=== PATIENT | female | born 1935 | race Caucasian/White ===

== ENCOUNTER 2019-01-20 18:19 | Inpatient (IN) | payer OTHER, MEDICARE ==
[~2019-01-20] VITALS: Ht 162.6 cm; Wt 62.7 kg
[2019-01-20 19:31] LABS: PLATELET COUNT 302 x10^3mcL (130-400)
[2019-01-20 19:40] LABS: CALCIUM 10.3 mg/dL (8.5-10.1); CHLORIDE SERUM 102 mmol/L (98-107); CREATININE SERUM 1.7 mg/dL (0.6-1.0); GLUCOSE SERUM 168 mg/dL (74-106); POTASSIUM SERUM 4.5 mmol/L (3.5-5.1); SODIUM SERUM 140 mmol/L (136-145)
[2019-01-20 19:42] LABS: RED CELL DISTRIBUTION WIDTH 14.8 % (11.5-14.5)
[2019-01-20 19:45] LABS: ALKALINE PHOSPHATASE 144 U/L (46-116); ALT/SGPT 38 U/L (14-59); AST/SGOT 26 U/L (15-37); BILIRUBIN TOTAL 1.35 mg/dL (0.20-1.00); TOTAL PROTEIN, SERUM 7.9 g/dL (6.4-8.2)
[2019-01-20 19:47] LABS: ALBUMIN 3.1 g/dL (3.4-5.0)
[2019-01-20 20:08] LABS: BAND NEUTROPHIL 0 % (0-10); BASOPHIL 0 % (0-2); MONOCYTE 4 % (0-7); SEGMENTED NEUTROPHILS 90 % (37-75)
[2019-01-20 20:09] LABS: PLATELET MORPHOLOGY PLATELETS NORMAL; rbc morphology (normal/abnorm) NORMAL (NORMAL)
[2019-01-20 22:30] LABS: UA SPECIFIC GRAVITY >=1.030 (1.005-1.035); microscopic required? YES; urine erythrocyte 2+ (NEGATIVE)
[2019-01-20 23:24] VITALS: BP 136/74
[2019-01-21 00:09] LABS: MAGNESIUM 2.1 mg/dL (1.8-2.4); PHOSPHOROUS 4.6 mg/dL (2.5-4.9)
[2019-01-21 04:10] VITALS: BP 148/62
[2019-01-21 05:42] LABS: BASOPHIL % 0.1 % (0-2); PLATELET COUNT 270 x10^3mcL (130-400)
[2019-01-21 06:13] LABS: CALCIUM 9.4 mg/dL (8.5-10.1); CARBON DIOXIDE 26.1 mmol/L (21-32); CHLORIDE SERUM 107 mmol/L (98-107); CREATININE SERUM 1.8 mg/dL (0.6-1.0); GLUCOSE SERUM 141 mg/dL (74-106); POTASSIUM SERUM 4.6 mmol/L (3.5-5.1); SODIUM SERUM 143 mmol/L (136-145)
[2019-01-21 07:03] LABS: RED CELL DISTRIBUTION WIDTH 14.9 % (11.5-14.5)
[2019-01-21 08:44] VITALS: BP 141/73
[2019-01-21 11:41] VITALS: BP 130/70
[2019-01-21 16:06] VITALS: BP 127/69
[2019-01-21 19:53] VITALS: BP 163/64
[2019-01-22 06:00] VITALS: BP 192/97
[2019-01-22 07:04] LABS: CARBON DIOXIDE 25.1 mmol/L (21-32); CHLORIDE SERUM 102 mmol/L (98-107); CREATININE SERUM 1.5 mg/dL (0.6-1.0); GLUCOSE SERUM 156 mg/dL (74-106); MAGNESIUM 1.8 mg/dL (1.8-2.4); PHOSPHOROUS 2.4 mg/dL (2.5-4.9); POTASSIUM SERUM 3.4 mmol/L (3.5-5.1); SODIUM SERUM 140 mmol/L (136-145)
[2019-01-22 07:25] LABS: BASOPHIL % 0 % (0-2); PLATELET COUNT 238 x10^3mcL (130-400); RED CELL DISTRIBUTION WIDTH 14.8 % (11.5-14.5)
[2019-01-22 08:46] VITALS: BP 155/95
[2019-01-22 17:43] VITALS: BP 168/99
[2019-01-22 21:32] VITALS: BP 155/89
[2019-01-23 06:49] VITALS: BP 160/88
[2019-01-23 07:46] LABS: CALCIUM 9.5 mg/dL (8.5-10.1); CHLORIDE SERUM 100 mmol/L (98-107); CREATININE SERUM 1.1 mg/dL (0.6-1.0); GLUCOSE SERUM 132 mg/dL (74-106); POTASSIUM SERUM 3.7 mmol/L (3.5-5.1); SODIUM SERUM 136 mmol/L (136-145)
[2019-01-23 08:20] LABS: BASOPHIL % 0.3 % (0-2); PLATELET COUNT 220 x10^3mcL (130-400); RED CELL DISTRIBUTION WIDTH 14.5 % (11.5-14.5)
[2019-01-23 09:11] VITALS: BP 119/74
[2019-01-23 15:59] VITALS: BP 152/80
[2019-01-23 16:37] VITALS: Ht 162.6 cm; Wt 62.7 kg
[2019-01-23 16:52] VITALS: BP 160/86
[2019-01-23 21:09] VITALS: BP 143/90
[2019-01-24 05:30] VITALS: BP 142/66
[2019-01-24 07:11] LABS: CALCIUM 8.3 mg/dL (8.5-10.1); CARBON DIOXIDE 27.3 mmol/L (21-32); CHLORIDE SERUM 104 mmol/L (98-107); CREATININE SERUM 1.3 mg/dL (0.6-1.0); GLUCOSE SERUM 116 mg/dL (74-106); POTASSIUM SERUM 4.5 mmol/L (3.5-5.1); SODIUM SERUM 139 mmol/L (136-145)
[2019-01-24 07:50] LABS: PLATELET COUNT 217 x10^3mcL (130-400)
[2019-01-24 08:35] VITALS: BP 135/65
[2019-01-24 12:30] LABS: BASOPHIL % 0 % (0-2); RED CELL DISTRIBUTION WIDTH 14.6 % (11.5-14.5)
[2019-01-24 17:25] VITALS: BP 113/68
[2019-01-24 21:06] VITALS: BP 133/63
[2019-01-25 05:20] VITALS: BP 153/81
[2019-01-25 06:34] LABS: CHLORIDE SERUM 106 mmol/L (98-107); CREATININE SERUM 1.1 mg/dL (0.6-1.0); GLUCOSE SERUM 131 mg/dL (74-106); POTASSIUM SERUM 3.9 mmol/L (3.5-5.1); SODIUM SERUM 138 mmol/L (136-145)
[2019-01-25 06:40] LABS: BASOPHIL % 0.4 % (0-2); PLATELET COUNT 188 x10^3mcL (130-400)
[2019-01-25 06:41] LABS: RED CELL DISTRIBUTION WIDTH 14.9 % (11.5-14.5)
[2019-01-25 09:20] VITALS: BP 134/76
[2019-01-25] MEDS ORDERED: HEP5I SC (12:48)
[2019-01-25 13:59] VITALS: BP 134/76
[2019-01-25 16:35] VITALS: BP 155/101
== END 2019-01-25 19:07 | DRG 469 ==
LOC: ED 18:19 → MU 21:57
PROVIDERS: Emergency Medicine; Family Medicine; Neuromusculoskeletal Medicine, Sports Medicine; ADMIT Internal Medicine
PROC: 0SRS0JA Replacement of Left Hip Joint, Femoral Surface with Synthetic Substitute, Uncemented, Open Approach (ICD-10-PCS; principal; 2019-01-23 13:00)
DX: S72.012A Unspecified intracapsular fracture of left femur, initial encounter for closed fracture (principal); N17.0 Acute kidney failure with tubular necrosis; E44.1 Mild protein-calorie malnutrition; Z68.1 Body mass index [BMI] 19.9 or less, adult; D72.829 Elevated white blood cell count, unspecified; E86.0 Dehydration; R80.9 Proteinuria, unspecified; R73.03 Prediabetes; W18.39XA Other fall on same level, initial encounter; Y93.89 Activity, other specified; F03.90 Unspecified dementia, unspecified severity, without behavioral disturbance, psychotic disturbance, mood disturbance, and anxiety; Y92.018 Other place in single-family (private) house as the place of occurrence of the external cause
CPT/HCPCS: 82962; 83880; 97116-GP; 97530-GP; C1776; J0690; J1644; J2270; J2405; J3010; J7030; Q0092

== ENCOUNTER 2019-02-08 09:34 | Inpatient (IN) | payer OTHER, MEDICARE ==
[~2019-02-08] VITALS: Ht 160 cm; Wt 54.4 kg
[~2019-02-08 09:34] MED LIST: HEP5I SC
--- NOTE | 2019-02-08 09:50 | NUR ---
PATIENT SHADY NASH COMING FROM [facility] AFTER HAVING LEFT HIP PAIN. PER MEDICS, PATIENT WAS IN [facility] FOR REHABILITATION FOR LEFT HIP FRACTURE FROM 3 WEEKS AGO. PER MEDIC, PATIENT WAS NON COMPLIANT WITH REHAB TREATMENT. UPON ARRIVAL TO ED, PATIENT'S HIP WEDGE WAS NOT PLACED BETWEEN PATIENT'S HIP. UPON ASSESSING PATIENT, PATIENT IS A POOR HISTORIAN WITH A HX OF DEMENTIA. PATIENT UNABLE TO DETERMINE TIME AND PLACE, BUT ABLE TO STATE HER FULL NAME AND DATE OF . PATIENT UNABLE TO LIFT LEFT HIP, STS PAIN WHEN ATTEMPTING TO LIFT. PATIENT ABLE TO MOVE RIGHT HIP, AND ABLE TO MOVE LEFT TOES. CAP REFILL BRISK <3 SECONDS. JENARO NOTED ON LEFT HIP, NO SIGNS OF INFLAMMATION NOTED, NO SIGNS OF BLEEDING OR SKIN TEARS NOTED ON LEFT HIP SURGICAL SITE. DR. WALDROP PERFORMED MSE AT BEDSIDE.
--- NOTE | 2019-02-08 09:55 | NUR ---
PATIENT TAKEN TO XRAY
--- NOTE | 2019-02-08 10:16 | NUR ---
LAB AT BEDSIDE DRAWING BLOOD
--- NOTE | 2019-02-08 10:23 | NUR ---
PT STS "COME ON GET ME OUT OF THIS BED!" BREATHING IS E/U BILATERAL CHEST RISE. BED AT LOWEST LEVEL. CALL LIGHT IN REACH. PATIENT IN NAD
--- NOTE | 2019-02-08 10:29 | NUR ---
UNABLE TO ASSESS BACK FOR ANY PRESSURE ULCERS, PATIENT STS PAIN WHEN ROTATING ON THE BED.
[2019-02-08 10:35] LABS: CALCIUM 9.3 mg/dL (8.5-10.1); CARBON DIOXIDE 28.2 mmol/L (21-32); CHLORIDE SERUM 104 mmol/L (98-107); CREATININE SERUM 1.2 mg/dL (0.6-1.0); GLUCOSE SERUM 134 mg/dL (74-106); POTASSIUM SERUM 4.7 mmol/L (3.5-5.1); SODIUM SERUM 139 mmol/L (136-145)
[2019-02-08 10:39] LABS: ALKALINE PHOSPHATASE 151 U/L (46-116); ALT/SGPT 38 U/L (14-59); AST/SGOT 23 U/L (15-37); BILIRUBIN TOTAL 0.54 mg/dL (0.20-1.00)
[2019-02-08 10:44] LABS: BASOPHIL % 0.4 % (0-2); PLATELET COUNT 494 x10^3mcL (130-400); RED CELL DISTRIBUTION WIDTH 15.4 % (11.5-14.5)
[2019-02-08 10:46] LABS: ALBUMIN 2.4 g/dL (3.4-5.0); TOTAL PROTEIN, SERUM 6.1 g/dL (6.4-8.2)
[2019-02-08 10:57] LABS: CHOLESTEROL/HDL RATIO 4.7
--- NOTE | 2019-02-08 11:55 | NUR ---
PT RESTING AT BEDSIDE IN NAD
--- NOTE | 2019-02-08 12:30 | NUR ---
RECEIVED PATIENT FROM [employer] FROM ED VIA [facility]. PATIENT WAS ALREADY IN BED, TRANSFERRED BY TECH AND WASTE MACHINE OPERATOR. PATIENT WAS ALERT BUT CONFUSED WITH A HISTORY OF DEMENTIA, A/0X1 ON ROOM AIR. PATIENT NOT COMPLAINING OF PAIN AT THIS TIME. PATIENT ADMITTED DUE TO LEFT HIP DISLOCATION S/P FALL AT NURSING CARE FACILITY. LEFT HIS HAS DEFORMITY, LEFT LEG SHORTENING AND INTERNAL ROTATION. PULSES, MOTOR, AND SENSORY INTACT. 20G IV TO LAC INTACT, SITE WNL. DAUGHTER AT BEDSIDE AMI [phone].
--- NOTE | 2019-02-08 12:45 | NUR ---
CALLED LUCRECIA FROM PT, INFORMED HIM THAT PATIENT IS NOW IN ROOM 226B AND IS READY FOR BUCKS TRACTIONS TO BE PLACED.
--- NOTE | 2019-02-08 13:18 | NUR ---
NS @ 100/H INFUSION STARTED PER OCT. TURNED PATIENT AND PLACED OPTIFOAM ON COXIS. PATIENT PLACED IN POSITION OF COMFORT. PT TO COME AND PLACE IN BUCKS TRACTION
[2019-02-08 13:21] VITALS: BP 118/70
--- NOTE | 2019-02-08 14:43 | NUR ---
PATIENT COMPLAINING OF NAUSEA. FOUND PATIENT LAYING SUPINE WITH BUCKS TRACTION IN PLACE TO LEFT LEG, 7LBS. PATIENT ALSO COMPLAIING OF SLIGHT PAIN BUT CONFUSED TO HOW SHE FELT. ADMINISTERED NORCO AND ZOFRAN PER MAR. WILL REASSESS PAIN IN 1 HOUR. CALL LIGHT WITHIN REACH, REINFORCED TEACHING TO USE CALL LIGHT IS HELP IS NEEDS. BED IN LOWEST POSITION, CALL LIGHT WITHIN REACH, AND BED ALARM ON
--- NOTE | 2019-02-08 16:08 | NUR ---
ENTERED PATIENT ROOM TO REASSESS PAIN, FONUD PATIENT SUPINE IN BED WITH GOWN OFF, IV PULLED OUT, AND ID BRACLET PULLED OFF. PATIENT A/0 X1 TO SELF, CONFUSED ABOUT LOCATION AND PURPOSE. REORIENTED PATIENT TO LOCATOIN AND TREATMENT PURPOSE. REDRESSED PATIENT AND HELPED TO GET COMFORTABLE. REMOVED IV CATH INTACT. NO BLEEDING, SWELLING TO SITE. RESTARTED IV 22GAUGE IN LEFT FOREARM, FLUSHES WELL.
--- NOTE | 2019-02-08 16:21 | NUR ---
PER CHARGE NURSE. PATIENT MOVED TO ROOM 220 INCASE OF NEED FOR SITTER. PATIENT MOVED WITHOUT INCIDENT. REPLACED FALL RIGHT BAND ON LEFT ARM, WELL IDENTIFICATION BAND. NEW IV SITE INTACT, FUSHES WELL. COVERED WITH SLEEVE. CALL LIGHT WITHIN REACH
--- NOTE | 2019-02-08 17:00 | NUR ---
FOUND PATIENT CONFUSED NEEDING REORIENTATION. PATIENT HAD REMOVED HER IV FROM THE RIGHT FOREARM. CATH IN TACT. SITE BLEEDING. PRESSURE APPLIED UNTIL BLEEDING CONTROLLED. CHANGED PATIENT GOWN AND LINEN WHICH HAD BLOOD ON IT. REORIENTED PATIENT TO LOCATION AND PURPOSE. PATIENT NOT AGITATED OR AGGRESSIVE, NOT TRYING TO GET OUT OF BED. BUCKS TRACTION NOT DISTURBED. IV ACCESS GAINED TO RIGHT FOREARM 22G. FLUSHES WELL, NO INFILTRATION AT SITE. CALL LIGHT WITHIN REACH
--- NOTE | 2019-02-08 17:30 | NUR ---
CALLED RAZ ROJAS PAINTING SUPERVISOR, INFORMED HER OF PATIENT CONDITION AND RECOMMENDATION FROM PAM, CHARGE NURSE, TO PLACE PATIENT IN SOFT BILATERAL WRIST RESTRAINTS. VERBAL ORDER RECEIVED FOR BILATERAL SOFT WRIST RESTRAINTS, AND TORODOL 15MG IVP ONCE. READ BACK. CALLED PATIENT DAUGHTER, AMI OROZCO TO GET VERBAL CONSENT FOR RESTRAINTS. INFORMED DAUGHTER OF PATIENT CONDITION AND THE NEED FOR RESTAINTS, ALSO INFORMED DAUSTER OF ALTERNATIVES ATTEMPTED PRIOR TO RECEIVING ORDER FOR RESTAINTS. DAUGHTER CONSENTED TO TREATMENT, WITNESSED AND CONFIRMED BY KORIN HDZ. BILATERAL SOFT, WRIST RESTRAINTS APPLIED. PULSE, MOTOR, SENSORY, AND CAP REFILL CHECKED AND WNL. PROPER DOCUMENTATION STARTED PER PROTOCOL.
[2019-02-08 18:11] VITALS: BP 148/79
--- NOTE | 2019-02-08 18:37 | NUR ---
ADMINISTERED TORODOL IVP PER ORDER. PATIENT CONFUSED, UNABLE TO BE REORIENTED TO SITUATION. SOFT RESTRAINTS IN PLACE, BUCKS TRACTION IN PLACE. CALL LIGHT WITHIN REACH
--- NOTE | 2019-02-08 19:35 | NUR ---
RECEIVED REPORT FROM AM NURSE, PT AAOX1, WITH EPISODES OF CUNFUSION. MED-SURG, DENIES ANY CP/PRESSURE AT THIS TIME. PALPABLE PULSES TO BLE AND BUE, NO EDEMA NOTED. LUNG SOUNDS CTA ON RA , BREATHING EVEN AND UNLABORED, NO SIGNS OF RESP DISTRESS NOTED. ABD SOFT AND NONDISTENDED, ACTIVE BOWEL SOUNDS X4 QUAD. VOIDS FREELY, BEDFAST, SYED TRACTION TO LLE 7LB ORDERED. CLOSED INCISION TO LEFT HIP WITH JENARO INTACT STATIC BALANCER, ERYTHEMA NOTED TO SITE. SMALL WOUND NOTED TO COCCYX, OPTIFOAM IN PLACE CDI.SOFT RESTRAINS TO BUE, GOOD CIRCULATION AND SKIN INTACT. IV TO LAC PATENT AND INTACT, BED AT LOWEST POSTION, CALL LIGHT WITHING REACH, WILL CONTINUE TO MONITOR.
--- NOTE | 2019-02-08 20:35 | NUR ---
PT REPORTS HAVING DIFFICULT TIME AND PAIN USING BEDPAN. DR TOWNSEND CALLED AND MADE AWARE, ORDERS RECEIVED FOR GOODRICH CATH INSERTION. EXPLAINED NEED TO PT, PT AGREEABLE. WILL CARRY OUT ORDERS.
--- NOTE | 2019-02-08 21:05 | NUR ---
PT RECEIVED A URINRY GOODRICH CATHETER PER MD ORDER. URINARY 16 FR INSERTED WITH 10CC IN BALLOON. URINE OUPUT OF 200 ML, URINE IS YELLOW AND CLEAR. STAT LOCK TO THE RIGHT UPPER THIGH. PT TOLERATED PROCEDURE WELL. RISK AND BENEFIT EXPLAINED TO PT. WILL CONTINUE TO MONITOR.
[2019-02-08 21:40] VITALS: BP 145/81
--- NOTE | 2019-02-09 00:49 | NUR ---
PT AWAKE IN BED, RESTRAINS TO BUE ASSESSSED, GOOD CIRCULATION AND SKIN INTACT. ROM TO BUE GIVEN. BREATHING EVEN AND UNLABORED ON RA, NO SIGNS OF ACUTE DISTRESS NOTED. DENIES ANY PAIN AT THIS TIME. WILL CONTINUE TO MONITOR.
[2019-02-09 05:36] VITALS: BP 133/72
--- NOTE | 2019-02-09 06:04 | NUR ---
PT SLEPT AT INTERVALS THROUGHOUT NIGHT. NIGHT, BREATHING EVEN AND UNLABORED ON RA, NO SIGNS OF ACUTE DISTRESS NOTED. SOFT RESTRAINS TO TIARA UE, ROM DONE, GOOD CIRCULATION AND SKIN INTACT NOTED. TRACTION TO L LEG IN PLACE. FALL PREACUTIONS IN PLACE. ALL NEEDS ASSESSED AND ATTENDED. BED AT LOWEST POSITION CALL LIGHT WITHING REACH. WILL ENDORSE TO AM NURSE.
[2019-02-09 06:20] LABS: BASOPHIL % 0.5 % (0-2)
[2019-02-09 06:49] LABS: PLATELET COUNT 430 x10^3mcL (130-400)
[2019-02-09 07:00] LABS: CALCIUM 8.8 mg/dL (8.5-10.1); CHLORIDE SERUM 107 mmol/L (98-107); CREATININE SERUM 1.2 mg/dL (0.6-1.0); GLUCOSE SERUM 107 mg/dL (74-106); MAGNESIUM 1.9 mg/dL (1.8-2.4); PHOSPHOROUS 3.3 mg/dL (2.5-4.9); POTASSIUM SERUM 4.4 mmol/L (3.5-5.1); SODIUM SERUM 141 mmol/L (136-145)
--- NOTE | 2019-02-09 09:33 | NUR ---
ADMINISTERED COLACE PER MAR, PATIENT IN SOFT RESTAINTS. TOLERATING WELL. STILL CONFUSED BUT ABLE TO BE REORIENTED
[2019-02-09 10:11] VITALS: BP 149/73
--- NOTE | 2019-02-09 10:42 | NUR ---
PATIENT RESTING CONFORTABLY AT THIS TIME. CONFUSED BUT REDIRECTABLE. CALM AND COOPERATIVE. SCDS TO RIGHT LOWER EXTREMITRY CALL LIGHT WITHIN REACH
--- NOTE | 2019-02-09 11:02 | NUR ---
WOUND CARE NURSE CAME AND EVALUATED PATEINT WOUNDS. COCCYX PRESSURE ULCER UNSTAGABLE, ORDERS BEING PUT IN FOR WOUND CARE.
--- NOTE | 2019-02-09 11:41 | NUR ---
WOUND CARE EVALUATION NOTE: REASON FOR EVALUATION: LOW COREEN SCORE AND SACRALCOCCYX WOUND SKIN ASSESSMENT DONE WITH PRIMARY RN AND PHYSICAL THERAPY WITH THIS 83 Y/O FEMALE PT ADMITTED FROM [facility] [place] [facility]IT[place] DX LEFT HIP DISLOCATION S/P FALLS. PAST MEDICAL HX INCLUDES DEMENTIA, LEFT HIP REPLACEMENT ABOUT 3 WEEKS AGO. ALL ABOVE INFORMATION OBTAINED FROM ADMISSION H&P. PT. ADMITTED WITH PRESSURE ULCER UNSTAGEABLE TO SACRALCOCCYX AREA. PT IS AWAKE. SKIN IS WARM AND DRY, RLE FEW HAIR GROWTH, NO EDEMA. BUCKS TRACTION TO LLE. PLAN OF CARE DISCUSSED WITH PRIMARY RN. INTEGUMENTARY: -SKIN DRYNESS TO UPPER AND LOWER EXTREMITIES -PRESSURE ULCER UNSTAGEABLE TO SACRALCOCCYX, 2X1CM 100% YELLOW SLOUGHT TO WOUND BED, MUSTAPHA-WOUND SKIN INTACT AND REDNESS -LEFT HIP SURGICAL WOUND MULTIPLE JENARO IN PLACE NO S/S OF WOUND DEHISCENCE, MUSTAPHA-WOUND SKIN INTACT AND DRY -BLANCHABLE REDNESS TO R/L HEELS RECOMMENDATIONS: -KEEP SKIN DRY AND CLEAN AT ALL TIMES, PLEASE CHECK Q2H AND PRN FOR INCONTINENCY OF BOWEL. -APPLY HYDRAGUARD TO R/L HEELS AND UPPER AND LOWER EXTREMITIES -CLEANSE WITH WOUND CLEANSING SOLUTION AND APPLY THERAHONEY GEL TO SACROCOCCY, APPLY FOAM DRESSING, QDAYAND PRN IF SOILING PREVENTION -APPLY HEEL PROTECTOR TO RIGHT HEEL AT ALL TIMES -OFFLOAD BILATERAL HEELS BY PLACING PILLOWS UNDER CALVES UNLESS OTHERWISE CONTRAINDICATED -PRESSURE REDISTRIBUTION SURFACE THERAPY -TURN AND REPOSITION Q2H, OFFLOAD SACRALCOCCYX BY TURNING RIGHT AND LEFT -CONTINUE TO FOLLOW RD RECOMMENDATIONS ALL ABOVE RECOMMENDATIONS DISCUSSED WITH PRIMARY RN. PLEASE CONTACT WOUND CARE NURSE FOR ANY QUESTION AND CHANGE OF WOUND CONDITION.
--- NOTE | 2019-02-09 13:50 | NUR ---
Initial Nutrition Assessment: 220/A SHARON EMERSON IA HR Dx: L hip dislocation PMHx: Dementia PSHx: Left Hip Replacement Labs: BG 107H, BUN 29H, CREAT 1.2H, TG 231H, CHOL 211H, LDL 141H Meds: Colace, morphine, zofran Diet: CCHO PO Intake: Not documented Ht: 160.02cm (63") Wt: 54.4 kg (119#) BMI: 21.3 kg/m2 Bed scale: 119# IBW:115# (52 kg) %IBW: 103 UBW: 119# Age: 83/F Food Allergies: NKFA Skin: s/p previous L hip replacement w/filomena intact, erythema noted to site Norris: 13 Edema: none GI: Last BM: 02/08 Trigger: appears underweight/malnourished, admitted w/potential risk diagnosis Per H&P, Pt is a 83-year-old Female with history of dementia, who was brought in by EMS from [facility] for having left hip pain. Patient was admitted to [facility] 3 weeks ago for rehabilitation for left hip fracture and s/p replacement. Patient is a poor historian and has HX of Dementia. RDN Visit (02/09): Patient was resting but said that she feels uncomfortable due to something 'hard' placed beneath her back/hips. Patient said that she did eat her breakfast this morning and her appetite is good. She refused to take any oral nutrition supplements. Patient was asking "where am I", I informed her that she was in [facility] [place] Patient said that she does not drink tea/coffee d/t protestant reasons. Computrition was updated. Problem with: N/V/D/C: no Problems with: Chewing/Swallowing: no Current appetite: good Recent wt change: pt not sure %wt change: unable to access Vitamin/Supplement use: MVI, B-complex, pt not exactly sure Special diet at home: regular, no tea/coffee Physical activity: none Nutrition education given: Patient was encouraged to eat and improve PO to help in healing and improve overall nutritional status Food-drug interactions: Colace- high fiber w/3045-2077 ml fluids Education given: Estimated Nutritional Needs Based on current body weight 54.4 kg Energy: 4612-6012 kcal/d (25-30 kcal/kg) Protein: 54.4-65 g/d (1.0-1.2 g/kg) - geriatric maintenance Fluid: 4657-0120 ml/d (1 ml/kcal) or per doctor Nutrition Diagnosis 1. Altered nutrition related lab values related to endocrine and renal insufficiency and advanced age as evidenced by BG 107H, BUN 29H, CREAT 1.2H Intervention 1. Recommend continuing CCHO diet as tolerated. Monitor/Evaluate Goal: PO intake at least 75% of estimated needs Monitor: PO intake, Labs, GI function F/U in 3-5 days as moderate risk
--- NOTE | 2019-02-09 13:50 | NUR ---
1. Recommend continuing CCHO diet as tolerated.
--- NOTE | 2019-02-09 15:25 | NUR ---
PHYSICAL THERAPY NOTE PHYSICAL THERAPY EVAL ON HOLD. PATIENT IS PLANNED FOR SURGICCAL INTERVENTION OF DISPLACED L HIP.
--- NOTE | 2019-02-09 15:26 | NUR ---
[facility]. WITH TOTAL ASSIST ADN PT PRESENT, PATIENT WAS MOVED TO [facility]. PATEINT PLACED IN POSITION OF COMFORT. SCD AND PROTECTANT BOOT APPLIED TO RIGHT LEG. REPLACED MAINTANCE FLUID PER OCT. PATIENT IS STILL IN SOFT WRIST RESTRAINTS, PATIENT TRYS TO REMOVE IV LINES SOON RESTRAINTS ARE REMOVED.
--- NOTE | 2019-02-09 15:40 | NUR ---
SPOKE WITH RAZ REINOSO, INFORMED HER THAT PATIENT REMAINS ON RESTIANTS AND GOT APPROVAL TO CONTINUE ORDER FOR SOFT RESTAINTS. PATIENT TOLERATING RESTAINTS WELL..
[2019-02-09 17:44] VITALS: BP 155/87
--- NOTE | 2019-02-09 18:00 | NUR ---
RENEWED ORDER FOR SOFT RESTRAINTS, PER PROTOCOL. PATIENT SPENT TOTAL OF 10 HOURS IN RESTRAINTS, CONTINUALLY PULLING AT IV LINE SOON RESTRIANTS REMOVED
--- NOTE | 2019-02-09 18:41 | NUR ---
WITH ASSISTACE, PERFORMED WOUND CARE TO COCCYX PER ORDER, PERFORMED GOODRICH CARE. PATIENT COMPLIANT WITH TREATMENTS, RESTAINTS STILL INPLACE TO BILATERAL WRISTS.
[2019-02-09 19:40] VITALS: BP 140/62
--- NOTE | 2019-02-09 19:40 | NUR ---
RECEIVED REPORT FROM AM NURSE. PT AAOX1 ABLE TO FOLLOW SIMPLE COMMANDS. MED-SURGE, DENIES CP/PRESSURE AT THIS TIME. PALPABLE PULSES TO BLE, NO EDEMA NOTED, SCDS IN PLACE. BREATHING EVEN AND UNLABORED ON RA, LUNG SOUNDS CTA, NO RESP DISTRESS NOTED. ABD SOFT AND NONDISTENDED, ACTIVE BOWEL SOUNDS X4QUAD, DENIES N/V. FOLLEY CATHETER DRANING WELL BY GRAVITY, BRENDA COLOR URINE IN BAG. GENERALIZED WEAKNESS, BUCKS TRACTION 7LB TO LLE IN PLACE OFF THE FLOOR. SOFT WRIST RESTRAINS TO BUE, GOOD CIRCULATION AND INTACT SKIN TO BUE. OPEN WOUND TO COCCYX WITH OPTIFOAM CDI. JENARO TO LEFT HIP WITH OPTIFOAM CDI. IV TO RFA INFUSING WELL, FREE FROM REDNESS AND SWELLING. NO ACUTE DISTRESS NOTED. BED ALARM ON, CALL LIGHT WITHING REACH. WILL CONTINUE TO MONITOR.
--- NOTE | 2019-02-09 21:44 | NUR ---
PT FOUND WITH RESTRAINS OFF, AND PULLING AT GOODRICH CATH, IV TO RFA REMOVED WITH CATH INTACT. PT PLACED BACK ON TO BUE SOFT WRIST RESTRAINS. NEW IV STARTED TO RFA, IV FLUIDS RETARTED ORDERED.
--- NOTE | 2019-02-10 03:10 | NUR ---
PT FOUND WITH RESTRAINS OFF, PULLING AT GOODRICH CATH. PT REPOSITIONED, PUT BACK ON SOFT WRIST RESTRAINS TO BUE, GOOD CIRCULATION AND SKIN INTACT TO BUE. BREATHING EVEN AND UNLABORED, IV TO RFA INFUSING WELL. BUCKS TRACTION TO LLE OFF THE FLOOR. NO SIGNS OF ACUTE DISTRESS NOTED. WILL CONTINUE TO MONITOR.
--- NOTE | 2019-02-10 05:20 | NUR ---
SPOKE WITH PT'S DAUGHTER, AMI BUCKNER, OBTAINED TELEPHONE CONSENT FOR SCHEDULED SURGERY THIS MORNING. VERIFIED WITH SECOND RN, JOHNNY BORREGO.
[2019-02-10 05:42] VITALS: BP 162/90
--- NOTE | 2019-02-10 05:46 | NUR ---
PT PREPPED AND READY FOR SCHEDULED SX THIS AM. CHG WIPES DONE. SURGICAL SITE CHECKED AND INITIALED. CONSENT SIGNED AND IN CHART. CHECKLIST DONE AND IN CHART. PT NPO SINCE 2200 LAST NIGHT. NO ACUTE DISTRESS OBSERVED AT THIS TIME. IV TO RFA REMAINS IN PLACE, PATENT AND INTACT, INFUSING IVF WELL. BUE SOFT WRIST RESTRAINTS REMAIN IN PLACE. F/C REMAIN IN PLACE, DRAINING BRENDA URINE TO GRAVITY. BUCKS TRACTION REMAINS IN PLACE TO LLE WITH WEIGHTS OFF FLOOR AND DANGLING. COMORT AND SAFETY MEASURES MAINTAINED. ALL NEEDS ASSESSED AND ATTENDED. CALL LIGHT WITHIN REACH. WILL CONTINUE TO MONITOR AND ENDORSE CARE TO DAY SHIFT NURSE
--- NOTE | 2019-02-10 06:40 | NUR ---
REPORT GIVEN TO ANDREINA HURST IN OR. ALL QUESTIONS AND CONCERNS ADDRESSED. PT S/L AT THIS TIME. NO ACUTE DISTRESS OBSERVED. PT LAYING IN BED, BREATHING EVEN AND UNLABORED. CALL LIGHT WITHIN REACH. WILL CONTINUE TO MONITOR
[2019-02-10 07:14] LABS: BASOPHIL % 0.4 % (0-2); PLATELET COUNT 399 x10^3mcL (130-400)
--- NOTE | 2019-02-10 07:24 | NUR ---
PATIENT ALERT/CONFUSING. ON TIARA WRIST RESTRAINT. IVHL'D TO RFA. GOODRICH PATENT, 350CC YELLOW/CLOUDY URINE COLLECTED. WENT TO OR NOW.
[2019-02-10 07:38] LABS: CALCIUM 8.5 mg/dL (8.5-10.1); CARBON DIOXIDE 24.4 mmol/L (21-32); CHLORIDE SERUM 107 mmol/L (98-107); GLUCOSE SERUM 89 mg/dL (74-106); POTASSIUM SERUM 3.8 mmol/L (3.5-5.1); SODIUM SERUM 141 mmol/L (136-145)
--- NOTE | 2019-02-10 13:10 | NUR ---
RECEIVED PATEINT FROM OR AFTER L HIP SURGERY DONE. PATIENT DROWSY, AROUSABLE. V/S - 96.7-91-17-88/56 (67); O2 SAT 98% ON RA. DRSG D/C/I. PATIENT WAS DRYING FOR PAIN. HANDS AND L FOOT COOL TO TOUCH. WARM BLANKETS APPLIED. IVF OF NS 100CC/HR. MORPHINE 2MG IVP GIVEN. PUT PATIENT ON FLAT SUPINE POSITION. CONTINUE MONITOR.
[2019-02-10 13:15] VITALS: BP 88/56
[2019-02-10 14:02] VITALS: BP 115/57
[2019-02-10 14:03] VITALS: BP 115/57
--- NOTE | 2019-02-10 14:23 | NUR ---
PATIENT SLEEPING. B/P = 90/57, MAP 66; RAMDON BLOOD SUGAR 141. ABDUCTOR PILLOW IN PLACE. SKIN COOL IN TOUCH. TIARA PEDAL PULSES MODERATE. PATIENT ATTEMPTED TO REMOVE TUBES AND SX DRSG. TIARA WRIST SOFT RESTRAINT IN PLACE.
[2019-02-10 17:19] VITALS: BP 96/69
--- NOTE | 2019-02-10 19:00 | NUR ---
POOR APPETITE. REFUSED DINNER. HAD A COUPLE OF SPOONES FOOD. F/C 600CC OF URINE COLLECTED. NO BM THIS SHIFT. ON THERAPY SURFACE AIR MATTRESS. DRSG TO L HIP D/C/I. ABDUCTOR PILLOW IN PLACE. TIARA WRIST RESTRAINTS INPLACE. ENDROSED CARE TO [facility] NURSE.
[2019-02-10 19:10] VITALS: BP 124/66
--- NOTE | 2019-02-10 19:10 | NUR ---
RECEIVED PT LAYING IN BED, DISTRESS OBSERVED, PT IS CRYING AND MOANING, C/O PAIN TO LLE, WILL MEDICATE PRN. S/P ORIF TODAY TO L HIP WITH JENARO AND DRESSING IN PLACE, CDI. ABDUCTOR PILLOW IN PLACE. AIR MATTRESS, TURN AND REPOSITION Q2H. BUE SOFT WRIST RESTRAINTS IN PLACE, PULSE AND SKIN CHECK WNL, PT PULLS AT DRESSINGS, TUBES, AND LINES. AA/OX1, SELF ONLY, HX OF DEMENTIA, ABLE TO MAKE NEEDS KNOWN. MED-SURG, NO TELE, NO CP. PULSES PRESENT AND EQUAL THROUGHOUT, NO EDEMA NOTED. BREATHING ON 1L NC, EVEN AND UNLABORED, NO SOB OR DYSPNEA OBSERVED, LUNGS CTA, O2 SAT 94% ABD ROUND AND SOFT WITH ACTIVE BOWEL SOUNDS, DENIES N/V/D. GOODRICH CATH IN PLACE, DRANING BRENDA URINE TO GRAVITY. OPEN WOUND TO COCCYX, THERAHONEY AND OPTIFOAM IN PLACE, CDI. IV TO RFA IN PLACE, DRY, PATENT, INTACT, AND INFUSING IVF WELL, NO PAIN, REDNESS OR SWELLING NOTED. COMFORT AND SAFETY MEASURES IN PLACE. ALL NEEDS ASSESSED AND ATTENDED TO. BED IN LOWEST POSITION WITH SIDE RAILS UP X2 AND BED ALARM ACTIVATED. CALL LIGHT WITHIN REACH. WILL CONTINUE TO MONITOR
--- NOTE | 2019-02-10 20:00 | NUR ---
PT IN VISIBLE PAIN, HR ELEVATED, CRYING, MILD DISTRESS NOTED. MEDICATED WITH PRN MORPHINE PER EMAR.
--- NOTE | 2019-02-11 00:41 | NUR ---
PT OBSERVED TO BE IN DISTRESS AND DISCOMFORT, CRYING AND ADMITS TO PAIN WHEN ASKED. MEDICATED WITH PRN MORPHINE PER EMAR
[2019-02-11 05:35] VITALS: BP 110/65
--- NOTE | 2019-02-11 06:18 | NUR ---
NO SIGNIFICANT CHANGES TO REPORT, PT COMPLIED WITH NURSING CARE THROUGHOUT THE SHIFT WITH NO ACUTE EVENTS OVERNIGHT. NO ACUTE DISTRESS NOTED AT THIS TIME, PT LAYING IN BED, BREATHING EVEN AND UNLABORED, AROUSABLE TO VERBAL STIMULI. COMFORT AND SAFETY MEASURES MAINTAINED. ALL NEEDS ASSESSED AND ATTENDED TO. CALL LIGHT WITHIN REACH. WILL CONTINUE TO MONITOR AND ENDORSE CARE TO DAY SHIFT NURSE.
[2019-02-11 07:11] LABS: CALCIUM 7.7 mg/dL (8.5-10.1); CARBON DIOXIDE 19.9 mmol/L (21-32); CHLORIDE SERUM 109 mmol/L (98-107); CREATININE SERUM 1.6 mg/dL (0.6-1.0); GLUCOSE SERUM 150 mg/dL (74-106); POTASSIUM SERUM 4.9 mmol/L (3.5-5.1); SODIUM SERUM 141 mmol/L (136-145)
--- NOTE | 2019-02-11 07:15 | NUR ---
RECEIVED PT. IN BED AT THIS TIME. PT. IS AWAKE BUT CONFUSED. PT. APPEARS RESTLESS AND AGITATED. NS RUNNING AT 100 CC/HR VIA IV SITE AT R FA. PT. IS ON AIR MATTRESS. TIARA. SOFT WRIST RESTRAINTS MAINTAINED (PT. STILL ATTEMPTS PULLING ON IV TUBING, OXYGEN TUBING, F/C, AND GOWN). R HEEL PROTECTOR IN PLACE. ABDUCTOR PILLOW IN PLACE. F/C DRAINING BRENDA URINE. WILL RELEASE SOFT WRIST RESTRAINTS Q 2 HRS. FOR 10 MINS. FOR ROM EXCERCISES. BED IN LOW POS., CALL LIGHT WITHIN REACH. SIDE RAILS UP X3.
[2019-02-11 07:35] LABS: PLATELET COUNT 341 x10^3mcL (130-400)
[2019-02-11 07:50] LABS: RED CELL DISTRIBUTION WIDTH 16.4 % (11.5-14.5)
[2019-02-11 09:37] VITALS: BP 146/78
[2019-02-11 10:47] LABS: BAND NEUTROPHIL 5 % (0-10); BASOPHIL 0 % (0-2); MONOCYTE 9 % (0-7); SEGMENTED NEUTROPHILS 80 % (37-75)
[2019-02-11 10:48] LABS: PLATELET MORPHOLOGY PLATELETS NORMAL; rbc morphology (normal/abnorm) ABNORMAL (NORMAL)
--- NOTE | 2019-02-11 11:00 | NUR ---
CLEANSED OPEN WOUND TO COCCYX WITH CLEANSING SOLUTION. THERAHONEY GEL APPLIED TO WOUND BED BEFORE COVERING WITH OPTIFOAM. MINIMAL AMT. OF YELLOWISH DRAINAGE NOTED AT WOUND SITE.
--- NOTE | 2019-02-11 11:47 | NUR ---
P.T. NOTES PER ORTHO (DR. WHALEN), HOLD OFF P.T. UNTIL HIP ABDUCTOR BRACE ARRIVES; WILL AWAIT FOR FURTHER P.T. ORDER.
--- NOTE | 2019-02-11 13:42 | NUR ---
LAZARUS ARANDA FROM [facility] AT BEDSIDE TO PLACE HIP CONTROL BRACE ON PATIENT. PER LAZARUS, HIP CONTROL BRACE SHOULD NOT BE PLACED ON PT. WHEN PT. IS LYING IN BED (WHEN PT. NOT UP & OUT OF BED) AND THAT HIP CONTROL BRACE SHOULD BE PLACED ON PT. ONLY WHEN PT. IS TO GET UP AND OUT OF BED.
--- NOTE | 2019-02-11 14:28 | NUR ---
HIP CONTROL BRACE WAS REMOVED BY LAZARUS ARANDA AND LEFT AT BEDSIDE SINCE PENDING ORDER FOR PATIENT TO BE UP AND OUT OF BED.
--- NOTE | 2019-02-11 17:08 | NUR ---
REMAINS IN STABLE CONDITION AT THIS TIME. WILL CONTINUE TO MONITOR.
--- NOTE | 2019-02-11 18:30 | NUR ---
NOTED PT.'S 12 HOUR SHIFT URINE OUTPUT = 350 CC (DARK BRENDA). THE ABOVE URINE OUTPUT WAS NOTIFIED TO THE NURSE PRACTITIONER RAZ ROJAS. RAZ SAID TO IRRIGATE THE F/C FIRST. IF URINE OUTPUT IS STILL LOW, THEN DO A BLADDER SCAN.
--- NOTE | 2019-02-11 18:40 | NUR ---
IRRIGATE F/C WITH 450 CC OF NS. NO BLOOD CLOT OBSERVED DURING MANUAL IRRIGATION. WILL CONTINUE TO MONITOR FOR URINE OUTPUT AMOUNT.
[2019-02-11 18:53] VITALS: BP 114/68
--- NOTE | 2019-02-11 19:15 | NUR ---
REPORT RECEIVED FROM DAY SHIFT RN. PATIENT WAS SEEN AND IS RESTING COMFORTABLY IN BED. BREATHING EVEN ON ROOM AIR. NO SOB OR RESP DISTRESS NOTED. DENIES CHEST PAIN. NO C/O PAIN. CONFUSED AND FORGETFUL. A/O X1. ABLE TO MAKE NEEDS KNOWN. GOODRICH CATH IN PLACE DRAINING BRENDA URINE BY GRAVITY. BILATERAL SOFT WRIST RESTRAINTS IN PLACE TO PREVENT PATIENT FROM PULLING OUT IV AND HIP DRESSING. CIRCULATION AND SKIN INTEGRITY WNL. LEFT HIP DRESSING IN PLACE S/P SURGERY, CDI. OPTIFOAM IN PLACE TO THE COCCYX, CDI. LEFT HIP ABDUCTOR BRACE AT BEDSIDE. IV TO THE RFA, 22G, INFUSING WELL. PATENT AND INTACT. NO REDNESS OR SWELLING NOTED. COMFORT AND SAFETY MEASURES IN PLACE. BED IS LOCKED AND IN THE LOWEST POSITION. SIDE RAILS UP X2. CALL LIGHT IS WITHIN REACH. WILL CONTINUE TO MONITOR.
[2019-02-11 21:22] VITALS: BP 129/58
--- NOTE | 2019-02-12 01:36 | NUR ---
PATIENT IS RESTING COMFORTABLY IN BED. FREQUENT REORIENTATION PROVIDED BECAUSE PATIENT IS CONFUSED. SOFT WRIST RESTRAINTS BILATERAL IN PLACE, CIRCULATION AND SKIN INTEGRITY WNL. PATIENT IS TRYING TO PULL CHUCKS AND ABDUCTOR PILLOW. REORIENTED PATIENT NOT TO PULL ON THOSE THINGS. PATIENT STOPPED. GOODRICH CATH IN PLACE DRAINING BRENDA OUTPUT. LOW URINE OUTPUT NOTED. IVF INFUSING WELL. PATIENT DENIES PAIN. SAFETY MEASURES IN PLACE. CALL LIGHT IS WITHIN REACH. WILL CONTINUE TO MONITOR.
--- NOTE | 2019-02-12 05:00 | NUR ---
PATIENT SCREAMED SAYING HER BLADDER IS BURNING. DEVON MORA FOR THE PATIENT AND PATIENT NOW STATES " NO, I DON'T HAVE PAIN. IT'S NOT BURNING. I DON'T NEED THE PAIN MEDICINE." WILL CONTINUE TO MONITOR PATIENT AND PERFORM A BLADDER SCAN FOR LOW URINE OUTPUT.
--- NOTE | 2019-02-12 05:30 | NUR ---
400ML OF DARK BRENDA URINE OUTPUT FROM [facility] CATHETER FOR THE WHOLE SHIFT. BLADDER SCAN PERFORMED AND SHOWED 12-15ML OF URINE IN THE BLADDER.
[2019-02-12 05:50] VITALS: BP 139/79
--- NOTE | 2019-02-12 06:00 | NUR ---
PATIENT C/O PAIN "I HAVE PAIN EVERYWHERE" AND IS REQUESTING PAIN MED. PRN NORCO WAS ADMINISTERED PRECRIBED. WILL CONTINUE TO MONITOR AND REASSESS PAIN LEVEL.
--- NOTE | 2019-02-12 06:17 | NUR ---
PATIENT SLEPT ON AND OFF THROUGHOUT THE NIGHT. NO ACUTE CHANGES NOTED. BREATHING EVEN ON ROOM AIR. C/O X1 AND MEDICATED WITH PRN PAIN MEDS. IVF INFUSING WELL. NO DISTRESS NOTED. CONFUSED BUT COOPERATIVE WITH CARE. FREQUENT REORIENTATION NEEDED THROUHGOUT THE NIGHT. [facility] CATH IN PLACE DRAINING DARK BRENDA OUTPUT. LEFT HIP DRESSING,CDI. BILATERALLY SOFT WRIST RESTRAINTS IN PLACE AND CIRCULATION AND SKIN, WNL. RELEASED FOR PATIENT TO PERFORM ROM. PATIENT IS STILL PULLING AT TUBING, DRESSING, CHUCKS, AND ABDUCTOR PILLOW. REINFORCED NOT TO PULL AND SHE WOULD STOP. SAFETY MEASURES IN PLACE. CALL LIGHT IS WITHIN REACH. WILL ENDORSE CARE TO DAY SHIFT RN.
--- NOTE | 2019-02-12 07:01 | NUR ---
ARLETH CRANDALL, AWARE OF BLADDER SCAN RESULTS AND 400ML OUT URINE OUT FOR THE NIGHT.
--- NOTE | 2019-02-12 07:15 | NUR ---
RECEIVED PT. IN BED AWAKE AND ALERT. PT. IS CONFUSED. PT. IS ONLY ORIENTED TO SELF. NO SOB, NO N/V NOTED. PT. DENIES ANY PAIN AT THIS TIME. PT. IS ON AIR MATTRESS. ABDUCTOR PILLOW IN PLACE. HEEL PROTECTOR NOTED TO R HEEL. TIARA. SOFT WRIST RESTRAINTS MAINTAINED PT. STILL ATTEMPTING TO PULL ON F/C TUBING, IV LINES, DRESSINGS, AND GOWN. WILL RELEASE SOFT WRIST RESTRAINTS Q 2HRS. FOR 10 MINS. FOR ROM EXCERCISES. F/C DRAINING BRENDA URINE. BED IN LOW POS., CALL LIGHT WITHIN REACH. SIDE RAILS UP X3.
[2019-02-12 08:46] LABS: BASOPHIL % 0.2 % (0-2); PLATELET COUNT 259 x10^3mcL (130-400)
[2019-02-12 08:47] LABS: RED CELL DISTRIBUTION WIDTH 16.8 % (11.5-14.5)
[2019-02-12 09:00] VITALS: BP 129/57
[2019-02-12 09:02] LABS: CALCIUM 7.7 mg/dL (8.5-10.1); CARBON DIOXIDE 22.3 mmol/L (21-32); CHLORIDE SERUM 111 mmol/L (98-107); GLUCOSE SERUM 112 mg/dL (74-106); POTASSIUM SERUM 3.9 mmol/L (3.5-5.1); SODIUM SERUM 143 mmol/L (136-145)
--- NOTE | 2019-02-12 14:00 | NUR ---
CLEANSED OPEN WOUND AT COCCYX WITH IRRIGATION SOLUTION. THERAHONEY GEL APPLIED TO WOUND SITE BEFORE COVERING WITH OPTIFOAM DRESSING. MINIMAL AMT. OF YELLOWISH DISCHARGE NOTED AT WOUND SITE.
--- NOTE | 2019-02-12 16:13 | NUR ---
NOTED PT. DID NOT HAVE A BM FOR 4 DAYS. THE SPRAY MACHINE LOADER RAZ ROJAS WAS NOTIFIED OF THE ABOVE. ORDER FOR DULCOLAX SUPPOSITORY X1 RECEIVED.
--- NOTE | 2019-02-12 17:01 | NUR ---
REMAINS IN STABLE CONDITION AT THIS TIME. CIRCULATION WNL. TIARA. SOFT WRIST RESTRAINTS MAINTAINED. F/C CARE GIVEN.
[2019-02-12 17:30] VITALS: BP 156/79
--- NOTE | 2019-02-12 19:10 | NUR ---
REPORT RECIEVED FROM DAY SHIFT RN. PATIENT WAS SEEN AND IS RESTING COMFORTBALY IN BED. NO DISTRESS NOTED. BREATHING EVEN ON ROOM AIR. NO SOB OR RESP DISTRESS NOTED. DENIES CHEST PAIN. NO C/O PAIN. BILATERALLY SOFT WRSIT RESTRAINTS IN PLACE TO PREVENT PATIENT FROM PILLING ON IV AND DRESSING. CIRCULATION AND SKIN INTERGRITY ARE WNL. RELEASES RESTRAINTS SO PATIENT CAN PERFORM ROM. ASSISTED PATIENT WITH BUE ROM. IV TO THE RFA INFUSING WELL. PATENT AND INTACT. NO REDNESS OR SWELLING NOTED. LEFT HIP DRESSING IN PLACE S/P LEFT FEMUR ORIF ON 02/10. ABDUCTOR PILLOW IN PLACE. HEEL PROTECTOR TO THE RIGHT FOOT. OPTIFOAM TO THE COCCYX, CDI. ON AIR MATTRESS. HIP BRACE AT BEDSIDE. PATIENT IS CONFUSED AND FORGET, BUT IS ABLE TO MAKE NEEDS KNOWN. GOODRICH CATH IN PLACE DRAINING BRENDA URINE BY GRAVITY. COMFORT AND SAFETY MEASURES IN PLACE. SIDE RAILS UP X2. BED IS LOCKED AND IN THE LOWEST POSITION. CALL LIGHT IS WITHIN REACH. WILL CONTINUE TO MONITOR.
[2019-02-12 21:00] VITALS: BP 152/80
--- NOTE | 2019-02-12 21:47 | NUR ---
PATIENT PULLED OFF LEFT HIP DRESSING. REENFORCED WITH NEW DRESSING. PATIENT ALSO PULLED PUT GOODRICH CATHETER. RESTRAINS CHECKED AND THIGHTENED. SKIN AND CIRCULATION, WNL. REORIENTED PATIENT NOT TO PULL ON DRESSING. PATIENT STATED "I DID NOT DO THAT. I HAVE NO REASON TO PULL ON ANYTHING." PATIENT IS AWARE THAT WE NEED TO PLACE A NEW GOODRICH IN HER. WILL CONTINUE TO MONITOR. DENIES PAIN AT THIS TIME. CALL LIGHT IS WITHIN REACH.
--- NOTE | 2019-02-12 23:51 | NUR ---
SAW PATEINT AND RESTRAINTS WERE OFF. GOWN WAS REMOVED, BUT BLANKET WAS STILL ON THE PATIENT. IV INTACT. RESTRAINTS REAPPLIED. CIRCULATION AND SKIN, WNL. REORIENTED PATIENT NOT TO PULL ON TUBES OR DRESSING. PATIENT IS CONFUSED. NEW GOODRICH INSERTED. MAINTAINED STERILE FIELD. PATIENT TOLERATED WELL. DRAINING MABER URINE BY GRAVITY. GOODRICH CARE PROVIDED. PATIENT MADE COMFORTABLE IN BED. CALL LIGHT IS WITHIN REACH. WILL CONTINUE TO MONITOR. PATEINT DENIES PAIN.
--- NOTE | 2019-02-13 00:32 | NUR ---
PATIENT IS C/O OF OFF AND ON PAIN. SAID HER BACK IS ACHING AND LEFT HIP HAS SOME PAIN. PATIENT DID NOT RATE HER PAIN ON PAIN SCALE. PATIENT STATED "I DONT UNDERSTAND YOU." ON AND OFF CRYING WELL. PRN MORPHINE WAS ADMINISTERED PRESCRIBED. EDUCATED PATIENT THAT DROWSINESS MAY OCCUR. CALL LIGHT IS WITHIN REACH. WILL CONTINUE TO MONITOR AND REASSESS PAIN LEVEL.
--- NOTE | 2019-02-13 02:21 | NUR ---
PATIENT IS AWAKE AND SCREAMING. PATIENT STATING "I CAN'T SLEEP. PLEASE HELP ME SLEEP." HELPED THE PATIENT WITH DEEP BREATHING EXERCISES. PATIENT STATES "OKAY I'LL TRY TO SLEEP NOW." PATIENT IS SLEEPING ON AND OFF. CONFUSED. RESTRAINTS IN PLACE. CIRCULATION AND SKIN INTEGRITY WNL. IVF INFUSING WELL. GOODRICH IN PLACE DRAINING BRENDA URINE BY GRAVITY. ABDUCTOR PILLOW IN PLACE. SAFETY MEASURES IN PLACE. CALL LIGHT IS WITHIN REACH. WILL CONTINUE TO MONITOR.
--- NOTE | 2019-02-13 03:32 | NUR ---
PATIENT IS QUIET BUT STILL RESTLESS. TRYING TO PULL ON RESTRAINTS. REORIENTING PATIENT AND TOLD HER NOT TO PULL RESTRIANTS. ALSO NOTICED 1+ EDEMA TO THE RIGHT EXTREMITIY. CIRCULATION AND SKIN INTERGRITY WNL. PATIENT CLOSED EYES AND IS TRYING TO SLEEP. CALL LIGHT IS WITHIN REACH. WILL CONTINUE TO MONITOR.
--- NOTE | 2019-02-13 03:34 | NUR ---
PATIENT IS QUIET BUT STILL RESTLESS. TRYING TO PULL ON RESTRAINTS. REORIENTING PATIENT AND TOLD HER NOT TO PULL RESTRIANTS. ALSO NOTICED 1+ EDEMA TO THE LEFT UUPER EXTREMITIY. CIRCULATION AND SKIN INTERGRITY WNL. PATIENT CLOSED EYES AND IS TRYING TO SLEEP. PATIENT ALSO STATED THAT THE MORPHINE DID RELIEVE HER PAIN. CALL LIGHT IS WITHIN REACH. WILL CONTINUE TO MONITOR.
--- NOTE | 2019-02-13 05:21 | NUR ---
PATIENT SLEPT ON AND OFF THROUGHOUT THE NIGHT. NO ACUTE CHANGES NOTED. BREATHING EVEN ON ROOM AIR. NO DISTRESS NOTED. MEDICATED WITH PRN MORPHINE X1 THROUGHOUT THE NIGHT FOR GENERALIZED PAIN WITH GOOD RELIEF. IV TO THE RFA INFUSING WELL PATENT AND INTACT. NO REDNESS OR SWELLING NOTED. RIGHT ARM SWELLING/ EDEMA NOTED 1+. LEFT HIP DRESSING, CDI. REENFORCED X2 THROUGHOUT THE NIGHT BECAUSE PATIENT KEPT PULLING ON DRESSING. BILATERALLY SOFT WRIST RESTRAINTS IN PLACE. RELEASED FOR ROM AND ASSISTED PATIENT WITH ROM. CIRCULATION AND SKIN INTERGRITY WNL. PATIENT IS CONFUSED AND TRIED TO ROOM RESTRAINTS. REMOVED ONCE THROUGHOUT THE NIGHT. PATIENT PULLED GOODRICH CATH OUT THROUHGOUT THE NIGHT. GOODRICH IN PLACE DRAINING BRENDA URINE BY GRAVITY. LOW URINE OUTPUT 500ML. ABDUCTOR PILLOW IN PLACE. OPTIFOAM TO COCCYX. INTERDRY PLACE BETWEEN ABD FOLDS TO PROTECT THE SKIN. CALL LIGHT IS WITHIN REACH. SAFETY MEASURES IN PLACE. WILL CONTINUE TO MONITOR AND ENDORSE CARE TO DAY SHIFT RN.
[2019-02-13 05:39] VITALS: BP 140/90
[2019-02-13 06:37] LABS: BASOPHIL % 0.1 % (0-2); PLATELET COUNT 292 x10^3mcL (130-400)
[2019-02-13 06:44] LABS: RED CELL DISTRIBUTION WIDTH 16.7 % (11.5-14.5)
[2019-02-13 06:46] LABS: CALCIUM 7.7 mg/dL (8.5-10.1); CARBON DIOXIDE 20.2 mmol/L (21-32); CHLORIDE SERUM 110 mmol/L (98-107); CREATININE SERUM 0.9 mg/dL (0.6-1.0); GLUCOSE SERUM 103 mg/dL (74-106); SODIUM SERUM 142 mmol/L (136-145)
[2019-02-13 09:10] VITALS: BP 125/71
--- NOTE | 2019-02-13 12:05 | NUR ---
PT WATCHING TV IN BED. RESP EVEN AND UNLABORED. DUE MEDS GIVEN AND TOLERATED WELL. PT DENIES PAIN AT THIS TIME. BUE SOFT WRIST RESTRAINTS IN PLACE. NO S/S OF REDNESS, SWELLING AND SKIN IS INTACT. WILL CONTINUE TO MONITOR.
--- NOTE | 2019-02-13 13:18 | NUR ---
Follow-up Nutrition Assessment: 208/A PATI EMERSON MR Dx: L hip dislocation PMHx: Dementia Labs: (02/13) BUN 22H, (02/08) TG 231H, CHOL 211H, LDL 141H Meds: Colace, morphine, zofran, heparin Diet: Regular PO Intake: 0% breakfast Weights: (02/08) 54.4 kg Skin: left hip dressing, optifoam to coccyx Norris: 12 I/Os: (02/13) 2940/1000 (1940) Edema: none GI: Last BM: 02/08 RDN Visit (02/13): Patient appeared confused and said that she did not eat anything for breakfast this morning. Per nutrition flowsheet documentation, pt had 0% lunch. Patient has denied ONS during last visit. Upon asking this time, pt gave vague answers and appeared confused. Estimated Nutritional Needs Based on current body weight 54.4 kg Energy: 4498-3094 kcal/d (25-30 kcal/kg) Protein: 54.4-65 g/d (1.0-1.2 g/kg) - geriatric maintenance Fluid: 9152-7035 ml/d (1 ml/kcal) or per doctor Nutrition Diagnosis 1. Inadequate oral intake related to poor appetite/confusion as evidenced by documented PO of 0% Intervention 1. Recommend continuing CCHO diet as tolerated. Monitor/Evaluate Goal: Have pt meet at least 75% of estimated needs Monitor: PO intake, Labs, GI function F/U in 2-3 days as high risk 02/15-
--- NOTE | 2019-02-13 13:18 | NUR ---
1. Recommend continuing CCHO diet as tolerated.
--- NOTE | 2019-02-13 16:04 | NUR ---
IV FLUIDS REPLENISHED. PT IS IN BED WATCHING TV. DENIES PAIN AT THIS TIME. RESP EVEN AND UNLABORED. NO DISTRESS NOTED.
[2019-02-13 16:40] VITALS: BP 95/51
--- NOTE | 2019-02-13 18:44 | NUR ---
PT IS AAOX1 TO SELF, FOLLOWS COMMANDS, VERBALLY RESPONSIVE. RESP EVEN AND UNLABORED. NO RESP DISTRESS NOTED. IVF RUNNING TO RFA, PATENT, SITE WNL. GOODRICH CATH IN PLACE, PATENT, DRAINING DARK YELLOW URINE. OPTIFOAM TO SACRAL COCCYX WOUND. NO S/S OF INFECTION NOTED. L HIP FX CLOSED WITH SUTURES AND JENARO, COVERED WITH CDI ISLAND DRESSING. PT HAS HIP BRACE IN PLACE TO L HIP. SKIN UNDER BRACE WNL. PT DENIES PAIN AT THIS TIME. CALL LIGHT WITHIN REACH. BED IN LOWEST POSITION. FALL PRECAUTIONS MAINTAINED THROUGH OUT SHIFT. BUE SOFT WRIST RESTRAINTS IN PLACE. SITE WNL. NO S/S OF REDNESS, SWELLING OR SKIN IRRITATION. WILL ENDORSE ALL CARE TO NOC ANDREINA.
--- NOTE | 2019-02-13 19:33 | NUR ---
DR. WHALEN MET WITH PT AND PERFORMED DRESSING CHANGE TO L HIP. BANDAGE REMOVED, AREA CLEANED WITH NS, AND COVERED WITH ISLAND DRESSING. PT TOLERATED DRESSING CHANGE WELL. PT REPOSITIONED FOR COMFORT. DENIES PAIN AT THIS TIME. CALL LIGHT WITHIN REACH.
--- NOTE | 2019-02-13 19:35 | NUR ---
RECEIVED PT FROM DAY SHIFT RN. PT AWAKE, ALERT AND ORIENTED TO SELF. PT CONFUSED. BREATHING EVEN AND UNLABORED ON RA, WITH NO SOB NOTED. MED-SURG PT, DENIES CHEST PAIN, NO SIGNS OF DISTRESS NOTED. ABD SOFT AND ROUND, ACTIVE BOWEL SOUNDS. F/C IN PLACE, DRAINING DARM BRENDA URINE. IV RFA PATENT, INFUSING WELL WITH NO SIGNS OF INFILTRATION NOTED. LEFT SIDE OF HIP COVERED WITH DRESSING, CDI. PT ALSO HAS ABUTUCTOR BRACE TO LLE IN PLACE AND ABDUCTOR PILLOW IN PLACE. PT HAS BILATERAL SOFT WIRST RESTRAINTS ON, SKIN AND CIRCULATION WNL. OPTIFOAM NOTED TO BUTTOCKS, CDI. NO SIGNS OF ACUTE DISTRESS NOTED. CALL BUTTON WITHIN REACH. SAFETY PRECAUTIONS IN PLACE. WILL CONTINUE TO MONITOR.
[2019-02-13 21:47] VITALS: BP 129/79
--- NOTE | 2019-02-14 01:00 | NUR ---
PT AWAKE, NO SIGNS OF DISTRESS NOTED. PT HAD A SMALL LOOSE BM. PT BREATHING EVEN AND UNLABORED WITH NO SOB NOTED. PT ON SOFT RESTRAINTS BUE. SKIN AND CIRCULATION WNL. IV PATENT, INFUSING WELL. CALL BUTTON WITHIN REACH. SAFETY PRECAUTIONS IN PLACE. WILL CONTINUE TO MONITOR.
--- NOTE | 2019-02-14 04:02 | NUR ---
PT RESTING, BREATHING EVEN AND UNLABORED WITH NO SOB NOTED. IV PATENT, INFUSING WELL WITH NO SIGNS OF INFILTRATION NOTED. BILATERAL SOFT WRIST RESTRAINTS, SKIN AND CIRCULATION WNL. CALL BUTTON WITHIN REACH. SAFETY PRECAUTIONS IN PLACE. WILL CONTINUE TO MONITOR.
--- NOTE | 2019-02-14 04:52 | NUR ---
PT COMPLAINING OF BODY PAIN. VS STABLE. PT MEDICATED PER EMAR. WILL CONTINUE TO MONITOR.
[2019-02-14 04:53] VITALS: BP 124/72
--- NOTE | 2019-02-14 06:07 | NUR ---
PT SLEPT POORLY THROUGHOUT THE NIGHT. PT BREATHING EVEN AND UNLABORED WITH NO SIGNS OF DISTRESS. IV PATENT, INFUSING WELL WITH NO SIGNS OF INFILTRATION NOTED. BILATERAL SOFT WRIST RESTRAINTS IN PLACE, SKIN AND CIRCULATION WNL. MEDICATED PER EMAR. F/C IN PLACE WITH DARK BRENDA COLOR URINE OUTPUT. CALL BUTTON WITHIN REACH. SAFETY PRECAUTIONS IN PLACE. WILL CONTINUE TO MONITOR AND ENDORSE CARE TO DAY SHIFT RN.
[2019-02-14 06:37] LABS: PLATELET COUNT 297 x10^3mcL (130-400)
[2019-02-14 06:40] LABS: BASOPHIL % 0 % (0-2); RED CELL DISTRIBUTION WIDTH 16.7 % (11.5-14.5)
[2019-02-14 06:48] LABS: CALCIUM 7.4 mg/dL (8.5-10.1); CARBON DIOXIDE 21.1 mmol/L (21-32); CHLORIDE SERUM 111 mmol/L (98-107); CREATININE SERUM 0.8 mg/dL (0.6-1.0); GLUCOSE SERUM 75 mg/dL (74-106); POTASSIUM SERUM 3.3 mmol/L (3.5-5.1); SODIUM SERUM 143 mmol/L (136-145)
--- NOTE | 2019-02-14 07:13 | NUR ---
PT BREATHING EVEN AND UNLABORED WITH NO SIGNS OF DISTRESS NOTED. IV PATENT, INFUSING WELL. BILATERAL SOFT WRIST RESTRAINTS IN PLACE, SKIN AND CIRCULATION WNL. NO SIGNS OF ACUTE DISTRESS NOTED. ENDORSED CARE TO DAY SHIFT RN, ALL QUESTIONS ADDRESSED.
--- NOTE | 2019-02-14 07:30 | NUR ---
PT ENDORSE TO ME THIS MORNING, LAYING IN BED RESTING, AA/OI X1 TO SELF/ CONFUSE. BREATHING EVEN AND UNLABORED ON RA, NO ACUTE RESP DISTRESS OR SOB NOTED. MEDSURG. NO SIGNS OF CHEST PAIN OR PRESSURE. REMAINS ON RESTRAINTS TO BOTH UPPER BLE, NO REDNESS OR SWELLING NOTED TO SITE, SITE INTACT. FOELY INTACT AND PATENT, DARK BRENDA URINE NOTED. SP ORIF LLE/ ABDUCTOR PILLOW INPLACE. DRESSING INTACT, DRESSING TO COCCYX INTACT, NO NEW DRAINAGE NOTED. IV TO THE RFA INTACT AND PATENT INFUSING AT 100ML/HR, NO REDNESS OR SWELLING NOTED. CALL LIGHT IN REACH. BED IN LOW POSITION. WILL CONTINUE TO MONITOR.
[2019-02-14 07:50] VITALS: BP 135/83
--- NOTE | 2019-02-14 08:47 | NUR ---
PT C/O L LEG PAIN 10/10, MEDICATED PER EMAR. WILL CONTINUE TO MONITOR.
[2019-02-14] MEDS ORDERED: NORCO1 TA2 PO (09:33)
--- NOTE | 2019-02-14 12:41 | NUR ---
PT REMAINS ON SOFT WRIST RESTRAINTS, SKIN AND CIRCULATION INTACT. WILL CONTINUE TO MONITOR.
[2019-02-14 14:17] VITALS: BP 108/59
[2019-02-14 14:29] LABS: microscopic required? YES; urine erythrocyte 2+ (NEGATIVE)
[2019-02-14 17:16] VITALS: BP 108/59
--- NOTE | 2019-02-14 17:47 | NUR ---
MEDICATED PER EMAR FOR L LEG PAIN 7/10 AND DRESG CHANGE TO L HIP AND COCCYX AREA. PT TOLERATED WELL. IS IN A SITTING POSITION WITH A FAM MEMBER AT BEDSIDE ASSISTING WITH FEEDING HER DINNER. WILL CONTINUE TO MONITIOR.
--- NOTE | 2019-02-14 18:33 | NUR ---
NO ACUTE CHANGES AT THIS TIME. NO ACUTE RESP DISTRESS OR SOB NOTED. REMAINS ON SOFT RESTRAINTS, SKIN AND CIRCULATION INTACT. DENIES ANY DISCOMFORT OR L LEG PAIN, MEDICATED PER EMAR AT THIS TIME, GOODRICH INTACT AND PATENT, TOTAL OUTPUT 330ML/HR, DARK URINE NOTED. NEW IV TO THE L WRIST INTACT AND PATENT. WILL ENDORSE TO INCOMING RN.
--- NOTE | 2019-02-14 19:15 | NUR ---
RECEIVED PT IN BED ASLEEP BUT EASILY AROUSABLE.LUNG SOUND CTA.BREATHING EVEN AND UNLABORED.S/P LEFT HIP ORIF WITH JENARO AND DRESSING. WOUOND TO COCCYX AREA WITH OPTIFOAM.LOG ROLL TO LEFT SIDE. ABDUCTOR PILLOW TO LLE. BRACE TO THORACOLUMBAR AREA.F/C IN PLACED DRAINING TO GRAVITY.BILATERAL SOFT WRIST RESTRAINTS.BED IN LOWEST POSITION,CALL LIGHT WITHIN REACH. WILL CONTINUE TO MONITOR.
[2019-02-14 21:00] VITALS: BP 126/80
--- NOTE | 2019-02-14 21:55 | NUR ---
PT C/O SURGICAL PAIN 05/02. MEDICATED MORPHINE 2MG IV ORDERED. WILL CONTINUE TO MONITOR.
--- NOTE | 2019-02-15 01:34 | NUR ---
PT C/O HIP PAIN 05/02. MEDICATED MORPHINE 2MG IV ORDERED.WILL CONTINUE TO MONITOR.
--- NOTE | 2019-02-15 02:00 | NUR ---
PT REMAINS ON RESTRAINTS. TRYING TO PULL THE IV LINES,GOWN AND CATHETER. WILL CONTINUE TO MONITOR.
--- NOTE | 2019-02-15 05:15 | NUR ---
PT ASLEEP AT THIS TIME.NO ACUTE RESPIRATORY DISTRESS NOTED.NO INDICATION OF PAIN.BED IN LOWEST POSITION,CALL LIGHT WITHIN REACH. WILL CONTINUE TO MONITOR.
[2019-02-15 05:52] VITALS: BP 131/71
--- NOTE | 2019-02-15 07:16 | NUR ---
RECEIVED REPORT FROM ALICE HDZ. PATIENT RESTING IN BED VISIBLY UPSET AND RESTLESS IN BED. PATIENT ON ROOM AIR. NO C/O SOB AND NO DISTRESS NOTED. IV TO LT WRIST AND RFA ARE PATENT AND INTACT. NO REDNESS OR PAIN. ABDUCTOR PILLOW IN PLACE AND HIP BRACE IN PLACE TO LT HIP. BILATERAL SOFT WRIST RESTRAINTS IN PLACE. CIRCULATION MAINTAINED. GOODRICH IN PLACE DRAINING YELLOW URINE. PT C/O PAIN AND DRY MOUTH. WATER ADMINISTERED AND PAIN MEDICATION WILL BE ADMINISTERED. ALL QUESTIONS AND CONCERNS ADDRESSED.
--- NOTE | 2019-02-15 07:17 | NUR ---
CARE ENDORSED TO DAY NURSE HARMONY. ALL QUESTIONS AND CONCERN WERE ADDRESSED.
--- NOTE | 2019-02-15 08:17 | NUR ---
IN TO SEE PATIENT AND ADMINISTER MEDICATION (SEE eMAR). PT RESTLESS AND C/O PAIN. MORPHINE ADMINISTERED. WILL REASSESS.
[2019-02-15 09:44] VITALS: BP 104/53
--- NOTE | 2019-02-15 11:14 | NUR ---
Follow-up Nutrition Assessment: 208/A PATI EMERSON MR Dx: L hip dislocation PMHx: Dementia Labs: (02/14) K 3.3L, BUN 19H, (02/08) TG 231H, CHOL 211H, LDL 141H Meds: Colace, morphine, zofran Diet: Regular (finely chopped) PO Intake: (02/15) 25% breakfast, (02/14) 15% Average Weights: (02/08) 54.4 kg Skin: left hip dressing, optifoam to coccyx Norris: 12 I/Os: (02/15) 1830/400 (1430) Edema: BUE, BLE GI: Last BM: 02/14 RDN Visit (02/13): Patient appeared confused and agitated and was crying. She was unable to comprehend any of my questions. Per ANDREINA Church, patient ate little breakfast this morning. Spoke with JUMPBASTING MACHINE OPERATOR Whit to place an order to LOCATION MANAGER eval to know the right consistency and texture for the diet. JUMPBASTING MACHINE OPERATOR agreed with the recommendations. Estimated Nutritional Needs Based on current body weight 54.4 kg Energy: 7121-3719 kcal/d (25-30 kcal/kg) Protein: 54.4-65 g/d (1.0-1.2 g/kg) - geriatric maintenance Fluid: 3255-4227 ml/d (1 ml/kcal) or per doctor Nutrition Diagnosis 1. Inadequate oral intake related to poor appetite/confusion as evidenced by documented PO of 25% (ongoing) Intervention 1. Recommend an order for LOCATION MANAGER evaluation to know the right consistency and texture of diet and to access and possible dysphagia. 2. Recommend continuing Regular diet as tolerated. Monitor/Evaluate Goal: Have pt meet at least 75% of estimated needs Monitor: PO intake, Labs, GI function F/U in 2-3 days as high risk 02/17-
--- NOTE | 2019-02-15 11:14 | NUR ---
1. Recommend an order for SYSTEM SUPPORT ADMINISTRATOR evaluation to know the right consistency and texture of diet and to access and possible dysphagia. 2. Recommend continuing Regular diet as tolerated.
--- NOTE | 2019-02-15 12:24 | NUR ---
IN TO SEE PATIENT AND ADMINISTER PAIN MEDICATION. PT CONTINUES TO BE RESTLESS. WILL REASSESS.
--- NOTE | 2019-02-15 15:12 | NUR ---
DR WHALEN IN TO SEE AND ASSESS PATIENT. DRESSING TO LT HIP REMOVED AND WAS 100% SATURATED WITH SEROSANGUINEOUS DRAINAGE. SIT INSPECTED AND NEW ISLAND DRESSING APPLIED. PT TOLERATED WELL. BRACE TO REMAIN IN PLACE. PT TURNED SUPINE. PAIN MEDICATION TO BE GIVEN.
[2019-02-15 17:43] VITALS: BP 128/65
--- NOTE | 2019-02-15 17:51 | NUR ---
PT WAS SEEN FOR DYSPHAGIA. PT WAS ABLE TO SAFELY SWALLOW PUREE DIET WITH NECTRA THICK LIQUID. PT HAD MILD COUGH FOR THIN LIQUID AND DIFFICULTY WITH MASTICATION SKILLS FOR MS DIET. RECOMMENDATION PUREE DIET WITH NECTAR THICK LIQUID SMALL BITES AND SIPS ONLY.
--- NOTE | 2019-02-15 18:01 | NUR ---
PT SWALLOW EVAL COMPLETE. RECOMMNEDATION IS FOR PUREE DIET WITH NECTAR THICK LIQUIDS. WILL NOTIFY .
--- NOTE | 2019-02-15 19:21 | NUR ---
REPORT GIVEN TO AMANDA HDZ. PATIENT CONTINUES TO BE RESTLESS IN BED. IV TO RAC IS PATENT AND INFUSING NS @ 100 ML/HR. NO REDNESS OR PAIN. PT ON ROOM AIR. NO C/O SOB AND NO DISTRESS NOTED. ABDUCTOR PILLOW AND BRACE IN PLACE. GOODRICH DRAINING DARK YELLOW URINE. BILAT SOFT WRIST RESTRAINTS IN PLACE WITH CIRCULATION MAINTAINED. ENDORSED TO AMANDA TO FOLLOW UP WITH MD FOR SWALLOW EVAL RECOMMENDATIONS. ALL QUESTIONS AND CONCERNS ADDRESSED.
--- NOTE | 2019-02-15 19:40 | NUR ---
RECEIVED REPORT FROM DAY SHIFT RN. PT RESTING IN BED WITH EYES CLOSED. OPENS EYES TO VERBAL STIMULI. A&O TO SELF. CONFUSED. NO SOB ON ROOM AIR. IV SALINE LOCK TO LEFT WRIST. IV TO RAC, NS INFUSING. ABDUCTOR PILLOW AND LT HIP BRACE IN PLACE. BILATERAL SOFT WRIST RESTRAINTS IN PLACE. CIRCULATION MAINTAINED. GOODRICH CATHETER IN PLACE, DRAINING BRENDA URINE BY GRAVITY. SAFETY MEASURES IN PLACE. BED IN LOWEST POSITION. SIDE RAILS UP X2. FREQUENT VISUAL CHECKS.
[2019-02-15 21:23] VITALS: BP 123/71
--- NOTE | 2019-02-15 21:50 | NUR ---
PT MOANING AND GRIMACING. MORPHINE GIVEN.
--- NOTE | 2019-02-16 01:23 | NUR ---
PT STATES "PAIN EVERYWHERE". MEDICATED WITH MORPHINE.
[2019-02-16 05:26] VITALS: BP 133/75
--- NOTE | 2019-02-16 06:50 | NUR ---
PT RESTED AT INTERVALS THROUGHOUT SHIFT. NO SOB ON ROOM AIR. BREATHING EVEN AND UNLABORED. REMAINS ON TIARA SOFT WRIST RESTRAINTS. PT TRIES TO PULL OUT TUBES/LINES WHEN RESTRAINTS WERE REMOVED. NO ACUTE CHANGES. SAFETY MEASURES MAINTAINED. ALL NEEDS ATTENDED TO. WILL ENDORSE CONTINUITY OF CARE TO ONCOMING RN.
--- NOTE | 2019-02-16 08:00 | NUR ---
RECEIVED PATIENT DROWSY, AROUSABLE, CONFUSION. NO RESP DSITRESS ON RA. HAD RECTAL BLEEDING 30CC. GOODRICH PATENT W/ BRENDA URINE OUTPUT. IV TO RAC LEAKING. IV TO L WRIST CATHETER OUT. BOTH IV D/C'D. BUE EDEMA 1+. NO EDEMA TO BUE. PEDAL PULSES PALPABLE. ABDUCTOR PILLOW IN PLACE. HIP BRACE TO L HIP IN PLACE. HEEL PROTACTOR IN PLACE. DRSG TO L HIP WET WITH YELLOWISH DRAINAGE. DRSG CHANGED. OPENED WOUND TO COCCYX AREA, OLD OPTIFOAM COMTAMINATED W/ BLOODY STOOL. NEW DRSG OF OPTIFOAM APPLIED. ON AIR MATTRESS. SAFETY PRECAUTION IN PLACE.
--- NOTE | 2019-02-16 08:24 | NUR ---
REPORTED RECTAL BLEEDING TO ARLETH MOORE. NEW ORDER OF D/C HEPARIN AND DR. Hawa BAKER CONSULTATION WRITTEN.
[2019-02-16 09:51] VITALS: BP 132/69
--- NOTE | 2019-02-16 10:10 | NUR ---
DR. Hawa BAKER CAME TO SEE PATIENT. NEW ORDER WRITTEN. 12 FR NGT W/ GUARD WIRE ENSERTED BY DR. Hawa BAKER. NEW IV INSERTION TO R HAND W/ 22G NEEDLE. MORPHINE 2MG IVP GIVEN.
[2019-02-16 10:29] LABS: BILIRUBIN DIRECT 0.36 mg/dL (0.0-0.2); BILIRUBIN TOTAL 0.63 mg/dL (0.20-1.00)
[2019-02-16 10:37] LABS: BASOPHIL % 0.3 % (0-2); PLATELET COUNT 332 x10^3mcL (130-400)
[2019-02-16 10:40] LABS: RED CELL DISTRIBUTION WIDTH 17.2 % (11.5-14.5)
[2019-02-16 10:57] LABS: ALBUMIN 1.4 g/dL (3.4-5.0); TOTAL PROTEIN, SERUM 4.7 g/dL (6.4-8.2)
--- NOTE | 2019-02-16 13:00 | NUR ---
PATIENT PULLED OUT NGT. REINSERTED WIRE GUIDE NGT 12FR.
--- NOTE | 2019-02-16 14:24 | NUR ---
PATIENT MOANING FOR PAIN. DILAUDID 2MG PO GIVEN.
--- NOTE | 2019-02-16 14:55 | NUR ---
REPOSITIONED PATIENT. RECTAL BLEEDING WAS SUBSIDED. ONLY SMALL AMOUNT, 5CC SEEN. DRSG OF LT HIP SURGICAL INCISION WAS CHANGED 7 HRS AGO, BUT FOUND DRSG SOAKED WITH YELLOWISH DRAIANGE W/ BLOOD TINGE. HAD MODERATE ODOR. IT WAS NOT CONTAMINATED WITH STOOL OR URINE. OPTIFORM DRSG TO COCCYX WAS INTACT AND CLEAN. ARLETH MOORE CALLED AND NOTIFIED.
--- NOTE | 2019-02-16 16:30 | NUR ---
DR. WHALEN PAGED AND CALLED BACK. REPORTED PATIENT SURGICAL DRSG SOAKED IN 6-7 HR OF DRSG CHANGE WITH YELLOWISH DRAINAGE AND W/ FOUL ODOR TO DR WHALEN. NEW TELEPHONE ORDER GIVEN.
[2019-02-16 17:06] VITALS: BP 126/55
--- NOTE | 2019-02-16 18:00 | NUR ---
CXR AND KUB SHOWED NGT REPLACED AND TUBE TIP IN STOMACH. DR. BAKER AWARE OF. GUIDE WIRE REMOVED AND NGT FEEDING STARTED PER ORDER.
--- NOTE | 2019-02-16 19:00 | NUR ---
RECTAL BLEEING SUBSIDED. IVF OF D5NS W/ KCL 20 MEQ 40CC/HR. WRIST RESTRAINT TIARA WRIST. ENDORSED CARE TO NOC NURSE.
[2019-02-16 21:07] VITALS: BP 127/5; BP 127/59
--- NOTE | 2019-02-16 22:19 | NUR ---
Awake, responsive. Nonverbal at this time. No respiratory distress noted on room air. Moaning noted when turned and repositioned, medicated with morphine 2mg IV as ordered with help. Ngtube right nare with feeding ongoing Jevity 1.2 benny at 30ml/hr, to advance rate q8hr to reach the goal of 50ml/hr. HOB kept 30degrees. No s/s of aspiration. Wearing left hip brace. Left hip incision with dressing intact. Pedal pulses palpable. SCD inplace. Repositioned for comfort. Heel protector inplaced. Dressing to sacral area intact, open wound noted. Bilateral soft wrist restraints intact to prevent pulling out IV line, tubes. No circulatory impairment. Will cont.to monitor. Call light within reach.
--- NOTE | 2019-02-17 02:00 | NUR ---
Ngtube feeding tolerated well. No n/v. No residual noted. Advanced rate to 40ml/hr. Turned and repositioned. Kept comfortable. Will cont.to monitor.
--- NOTE | 2019-02-17 03:58 | NUR ---
Restless at times. Turned and repositioned q2h. Kept pressure off back and bony prominences. Kept skin clean and dry. Heels floated. Abductor pillow in between the legs intact. (+)cms LLE. Bilateral soft wrist restraints inplace.Released and reapplied q2h x10min for ROM. No circulatory impairment. Tube feeding tolerated well.
[2019-02-17 05:19] VITALS: BP 128/59
[2019-02-17 06:10] LABS: CARBON DIOXIDE 21.3 mmol/L (21-32); CHLORIDE SERUM 112 mmol/L (98-107); CREATININE SERUM 0.8 mg/dL (0.6-1.0); GLUCOSE SERUM 181 mg/dL (74-106); POTASSIUM SERUM 4.2 mmol/L (3.5-5.1); SODIUM SERUM 142 mmol/L (136-145)
[2019-02-17 06:11] LABS: BASOPHIL % 0.1 % (0-2); PLATELET COUNT 305 x10^3mcL (130-400)
[2019-02-17 06:44] LABS: RED CELL DISTRIBUTION WIDTH 17.2 % (11.5-14.5)
--- NOTE | 2019-02-17 07:10 | NUR ---
PHYSICAL THERAPY DAILY NOTES CO-SIGN All documentation done by the Film Reader for 02/17/19 has been reviewed. I agree with the documentation. Reviewed/Co-Signed by: Airam Garcia PT Documentation Done by:JR LOPEZ PTA FOR 02/16/19
--- NOTE | 2019-02-17 07:30 | NUR ---
REPORT RECEIVED. PATIENT ASLEEP ON INITIAL ROUNDS. RR 19 UNLABORED. JEVITY 1.2 AT 40 CC/HR VIA PUMP IN PROGRESS. WAS TURNED TO RIGHT SIDE AND SKIN CARE TO WRIST AND BACK DONE.
[2019-02-17 08:05] VITALS: BP 128/69
--- NOTE | 2019-02-17 09:20 | NUR ---
SPEAKING INCOHERENTLY AND GRIMACING. TOLERATED PUREE DIET. NO COUGHING. REPOSITIONED TO HER BACK DURING FEEDING.
--- NOTE | 2019-02-17 10:58 | NUR ---
RESTING QUIETLY AT THIS TIME. REPOSITIONED TO SUPINE.
[2019-02-17 11:26] VITALS: BP 128/69
--- NOTE | 2019-02-17 11:30 | NUR ---
SKIN CARE AND ARM EXERCISES DONE.
[2019-02-17 11:38] VITALS: BP 123/67
--- NOTE | 2019-02-17 11:53 | NUR ---
Follow-up Nutrition Assessment: 208/A SHARON EMERSON FRANSISCO MR Dx: L hip dislocation PMHx: Dementia Labs: (02/17) BG 181H Meds: Colace, morphine, zofran Diet: NG Jevity 1.2 @ 30 ml/hr, goal 50 ml/hr, advance q8h, FWF 30ml Q4H, prosource 1 pack + puree w/nectar thick liquid PO Intake: (02/17) 100% breakfast,(puree) Weights: (02/08) 54.4 kg Skin: left hip dressing, optifoam to coccyx Norris: 12 I/Os: (02/17) 1850/1035 (815) Edema: BUE, BLE GI: Last BM: 02/16 RDN Visit (02/17): Patient appeared confused and agitated and was unable to comprehend any of my questions. Per RN Kathleen, patient ate 100% breakfast this morning. Patient is on puree w/nectar thick liquids. Per RN Kathleen patient is tolerating tube feeding well TF Jevity is running @ 40ml/hr currently and pt has dobhoff tube placed. Spoke with ARLETH Sherman to place an order for Ensure Enlive BID (to be thickened w/thickeners). [employer] [employer] agreed with the recommendations. Estimated Nutritional Needs Based on current body weight 54.4 kg Energy: 7976-6848 kcal/d (25-30 kcal/kg) Protein: 54.4-65 g/d (1.0-1.2 g/kg) - geriatric maintenance Fluid: 5820-1318 ml/d (1 ml/kcal) or per doctor Nutrition Diagnosis 1. Inadequate oral intake related to poor appetite/confusion as evidenced by documented PO of 25% (ongoing) Intervention 1. Recommend Ensure Enlive BID (to be thickened w/thickeners). 2. Recommend continuing NG Jevity 1.2 @ 30 ml/hr, goal 50 ml/hr, advance q8h, FWF 30ml Q4H, prosource 1 pack + puree w/nectar thick liquid. 3. D/C tube feedings if patient is eating >75% meals + drinking Enure Enlive supplement BID, if MD is agreeable. Monitor/Evaluate Goal: Have pt meet at least 75% of estimated needs Monitor: PO intake, Labs, GI function F/U in 2-3 days as high risk 02/19-02/20
--- NOTE | 2019-02-17 13:40 | NUR ---
RESTING IN BED. CONTINUES TO TALK INCOHERENTLY WHEN AWAKE. WRIST RESTRAINTS RELEASED AND SKIN CARE DONE.
--- NOTE | 2019-02-17 14:16 | NUR ---
VINCENT REP HERE TO EVALUATE PATIENT FOR POSSIBLE TRANSFER.
--- NOTE | 2019-02-17 15:21 | NUR ---
MD BAKER HERE AND RE-EVALUATED PATIENT.
[2019-02-17 15:38] VITALS: BP 136/60
--- NOTE | 2019-02-17 15:49 | NUR ---
DISCONTINUED IVF PER MD BAKER. DAUGHTER HERE VISITING.
--- NOTE | 2019-02-17 19:00 | NUR ---
RECEIVED PT IN BED ASLEEP BUT EASILY AROUSABLE.LUNG SOUND CTA. BREATHING EVEN AND UNLABORED.NO S/S OF PAIN. NGT@ 50ML/HR. BILATERAL SOFT WRIST RESTRAINTS. PULSES ARE PRESENT,EDEMA TO BUE.SCATTERED ECCHYMOSIS TO BUE. ABDUCTOR PILLOW AND BRACE IN PLACED. WOUND TO COCCYX WITH DRESSING,CDI. LEFT HIP DRESSING S/P ORIF. F/C IN PLACED DRAINING TO GRAVITY. BED IN LOWEST POSITION,CALL LIGHT WITHIN REACH. WILL CONTINUE TO MONITOR.
[2019-02-17 20:47] VITALS: BP 104/45
[2019-02-17 23:20] VITALS: Ht 160 cm; Wt 54.4 kg
--- NOTE | 2019-02-18 02:28 | NUR ---
PT CRYING OF PAIN. MEDICATED MORPHINE 2MG IV ORDERED. WILL CONTINUE TO MONITOR.
--- NOTE | 2019-02-18 05:02 | NUR ---
PT ASLEEP AND RESTLESS AT TIMES. NO SOB NOTED. NO INDICATION OF PAIN AT THIS TIME.CHECKED RESTRAINTS.CIRCULATION WNL.F/C CARE DONE.PERICARE PROVIDED.CHANGED DRESSING TO LEFT HIP.HOB ELEVATED.BED IN LOWEST POSITION,SIDERAILS UP.ALARM ON. WILL CONTINUE TO MONITOR.
[2019-02-18 05:45] VITALS: BP 148/76
[2019-02-18 06:26] LABS: BASOPHIL % 0.4 % (0-2); PLATELET COUNT 313 x10^3mcL (130-400)
[2019-02-18 06:37] LABS: CALCIUM 8.3 mg/dL (8.5-10.1); CHLORIDE SERUM 110 mmol/L (98-107); CREATININE SERUM 0.9 mg/dL (0.6-1.0); GLUCOSE SERUM 197 mg/dL (74-106); POTASSIUM SERUM 4.3 mmol/L (3.5-5.1); SODIUM SERUM 143 mmol/L (136-145)
--- NOTE | 2019-02-18 07:22 | NUR ---
CARE ENDORSED TO DAY NURSE HALLE. ALL QUESTIONS AND CONCERN WERE ADDRESSED.
--- NOTE | 2019-02-18 07:35 | NUR ---
PT IS AAOX1 TO SELF, DOES NOT FOLLOW COMMANDS, GARBLED SPEECH, UNABLE TO VERBALIZED NEEDS. ALL NEEDS WILL BE ANTICIPTATED BY STAFF. RESTLESS BEHAVIOR. ON BUE SOFT RESTRAINTS DUE TO PULLING AT LINES AND EQUIPMENT, AND ATTEMPTING TO PULL OF BANDAGE TO L HIP WOUND. NORMAL S1S2 NOTED. RESP EVEN AND UNLABORED. LUNG SOUNDS CTA BILATERALLY. ON R/A. NO COUGH OR SOB NOTED. BUE 1+ PITTING EDEMA. SCD'S IN PLACE. BEDFAST. ABDOMEN SOFT, NONTENDER, NONDISTENDED. BOWEL SOUNDS ACTIVE X4 QUADS. NO VOMITING NOTED. NASOGASTRIC TUBE IN PLACE TO R NOSTRIL, PATENT WITH JEVITY 1.2 ML/HOUR RUNNING CONTINUOUSLY. NO S/S OF SKIN IRRITATION TO R NARE. IV CATH N/S LOCKED TO RFA. SITE WNL. NO S/S OF INFECTION OR INFILTRATION AT SITE. PT HAS L HIP SX INCISION CLOSED WITH JENARO AND COVERED WITH CDI ISLAND DRESSING. PT SACRAL WOUND, OPEN COVERED WITH CDI OPTIFOAM DRESSING. PT CASTANON L UPPER THIGH WOUNDS X2 COVERED WITH CDI DRESSING. PT HAS BUE SOFT WRIST RESTRAINTS. SITE WNL. NO SWELLING, REDNESS AT SITE, SKIN INTACT. PT HAS L HIP BRACE IN PLACE. SKIN UNDER BRACE WNL. HOB ELEVATED 30 DEGREES. FALL PROTOCOL IN PLACE. BED IN LOWEST POSTION. CALL LIGHT WITHIN REACH.
[2019-02-18 07:50] LABS: RED CELL DISTRIBUTION WIDTH 18.1 % (11.5-14.5)
--- NOTE | 2019-02-18 09:31 | NUR ---
ROUTINE DILAUDID 2MG PO GIVEN CRUSHED IN APPLE SAUCE. PT TURNED AND REPOSTIONED. HOB 45 DEGRESS WITH ASPIRATION PRECAUSTIONS IN PLACE. BUE SOFT WRIST RESTRAINTS IN PLACE WITH NO S/S OF SWELLING, REDNESS OR SKIN IRRTITATION AT SITE. TV ON FOR DISTRACTION. ALL NEEDS ANTICIPATED AND ADDRESSED AT THIS TIME. BED IN LOWEST POSITION. FALL PROTOCOL FOLLOWED. WILL CONTINUE TO MONITOR.
--- NOTE | 2019-02-18 09:49 | NUR ---
PT REMOVED HAND OUT OF SOFT WRIST RESTRAINT AND PULLED THE NASOGASTRIC TUBE OUT OF HER NOSE. NO S/S OF BLEEDING OR IRRITATION AT SITE. DR. BAKER MET WITH AND ASSESSED PT. INFORMED DR. BAKER THAT PT HAS PULLED NG-TUBE. DR. BAKER STATED, "DO NOT PUT TUBE BACK IN PLACE. CONTINUE WITH ORAL FEEDINGS." BUE RESTRAINTS REPLACED WITH NEW RESTRAINTS, SITE WNL. WILL CONTINUE TO MONITOR.
[2019-02-18 10:01] VITALS: BP 145/73
--- NOTE | 2019-02-18 12:10 | NUR ---
PT RESTING IN BED COMFORTABLE. RESP EVEN AND UNLABORED. NO S/S OF DISTRESS NOTED. BUE SOFT WRIST RESTRAINTS IN PLACE, SITE WNL. NO REDNESS SWELLING OR SKIN IRRITATION NOTED. CALL LIGHT WITHIN REACH. BED IN LOWEST POSTION. CALL LIGHT WITHIN REACH.
--- NOTE | 2019-02-18 15:22 | NUR ---
MORPHINE 2MG IVP GIVEN FOR L HIP PAIN. PT NOTED SCREAMING OUT WHEN REPOSITIONED. EXTRA FLUIDS GIVEN. CALL LIGHT WITHIN REACH
--- NOTE | 2019-02-18 16:15 | NUR ---
DRESSING CHANGED DONE TO SACRAL COCCYX WOUND. REMOVED DRESSING, CLEANSED WITH N/S, PATTED DRY, COVERED WITH THERAHONEY AND APPLIED OPTIFOAM DRESSING. REMOVED L HIP DRESSING, CLEANSED WITH N/S AND APPLIED ISLAND DRESSING. L HIP WOUND IS WELL APPROXIMATED WITH SUTURES IN PLACE AND NO S/S OF INFECTION AND INFILTRATION. PT TOLERATED PROCEDURE WELL. BEDDING CHANGED AND GOODRICH CARE PROVIDED. NO S/S OF DISTRESS NOTED AT THIS TIME. SOFT WRIST RESTRAINTS IN PLACE TO BUE, NO S/S OF REDNESS OR SWELLING AT SITES. BED IN LOWEST POSITION. CALL LIGHT WITHIN REACH.
[2019-02-18 17:13] VITALS: BP 140/64
--- NOTE | 2019-02-18 18:23 | NUR ---
PT IS AAOX1 TO SELF. RESP EVEN AND UNLABORED. NO DISTRESS NOTED. GOODRICH CATH IN PLACE, PATENT, DRAINING CLEAR YELLOW URINE. IV CATH TO RFA N/S LOCKED. SITE WNL. NO S/S OF INFECTION OR INFILTRATION. BUE SOFT RESTRAINTS IN PLACE, SITES WNL, NO REDNESS OR SWELLING TO EXTREMITIES. FALL PROTOCOL MAINTAINED. PT TURNED AND REPOSITIONED Q 2 HOURS AND PRN. BED IN LOWEST POSITION. WILL ENDORSE ALL CARE TO ONCOMING NOC RN.
--- NOTE | 2019-02-18 19:32 | NUR ---
RECEIVED PT FROM DAY SHIFT RN. PT AWAKE, ALERT AND ORIENTED TO SELF. PT CONFUSED. BREATHING EVEN AND UNLABORED ON RA, WITH NO SOB NOTED. MED-SURG PT, DENIES CHEST PAIN, NO SIGNS OF DISTRESS NOTED. ABD SOFT AND ROUND, ACTIVE BOWEL SOUNDS. F/C IN PLACE. IV RFA PATENT, INFUSING WELL WITH NO SIGNS OF INFILTRATION NOTED. LEFT SIDE OF HIP COVERED WITH DRESSING, CDI. PT ALSO HAS ABUTUCTOR BRACE TO LLE IN PLACE AND ABDUCTOR PILLOW IN PLACE. PT HAS BILATERAL SOFT WIRST RESTRAINTS ON, SKIN AND CIRCULATION WNL. BUE EDEMA NOTED. OPTIFOAM NOTED TO BUTTOCKS, CDI. NO SIGNS OF ACUTE DISTRESS NOTED. CALL BUTTON WITHIN REACH. SAFETY PRECAUTIONS IN PLACE. WILL CONTINUE TO MONITOR.
[2019-02-18 20:45] VITALS: BP 140/80
--- NOTE | 2019-02-19 00:27 | NUR ---
PT AWAKE, BREATHING EVEN AND UNLABORED WITH NO SIGNS OF DISTRESS NOTED. IV PATENT, INFUSING WELL. PT BUE SOFT RESTRAINTS, SKIN AND CICULATION WNL. CALL BUTTON WITIN REACH. SAFETY PRECAUTIONS IN PLACE. WILL CONTINUE TO MONITOR.
[2019-02-19 06:15] VITALS: BP 153/83
--- NOTE | 2019-02-19 06:21 | NUR ---
PT SLEPT POORLY THROUGHOUT THE NIGHT. BREATHING EVEN AND UNLABORED ON RA WITH NO SOB NOTED. PT MEDICATED PER EMAR. PT ON BUE SOFT RESTRAINTS, SKIN AND CIRCULATION WNL. PT REPOSITIONED NEEDED. F/C IN PLACE, DRAINING YELLOW URINE. NO SIGNS OF DISTRESS NOTED. WILL CONTINUE TO MONITOR AND ENDORSE CARE TO DAY SHIFT RN.
--- NOTE | 2019-02-19 07:36 | NUR ---
PT BREATHING EVEN AND UNLABORED. NO SIGNS OF DISTRESS NOTED. ENDORSED CARE TO DAY SHIFT RN, ALL QUESTIONS ADDRESSED.
--- NOTE | 2019-02-19 07:45 | NUR ---
REPORT RECEIVED AND PATIENT SEEN AWAKE. CONFUSED BUT CALM. BILATERAL WRIST RESTRAINTS IN PLACE.MLOGROLL TO LEFT SIDE ONLY. UPPER SIDERAILS UP. BED LOW LOCKED AND ALARM ON. BODY LEG BRACE AND ABDUCTER PILLOW IN PLACE. WILL CHECK PER RESTRAINT PROTOCOL.
[2019-02-19 08:28] VITALS: BP 128/64
[2019-02-19 08:33] VITALS: BP 163/71
--- NOTE | 2019-02-19 12:21 | NUR ---
PER HOSPICE JAYME ALFARO, PLACE PATIENT UNDER HOSPICE GIP. MARKETING FINANCE MANAGER TERESA WAS MADE AWARE. PER JAYME WILL UPDATE TOMORROW WHEN BED AVAILABLE.
--- NOTE | 2019-02-19 12:52 | NUR ---
Follow-up Nutrition Assessment Dx: Left hip dislocation Labs: (02/18) BH, H/H:8.4/25L Meds Ancef, Colace, Dilauded, Ferrlecit, Morphine, Tylenol, Zofran and Klonopin Current Diet:Pureed with NTL PO intake:(02/17) B:100% L:80% D:80% (02/18) B:40% L:40% D:80% PO intake x 2 days:70% Weights: (02/08) 54.4kg no weights taken since admit (02/19) unable to weigh due to pt with RN and family. Skin: wound on coccyx w/ optifoam, BUE ecchymosis, left hip wound covered with dressing. Edema: BUE edema Last BM: 02/16 with active bowel sounds Per wound RN note 02/09, pressure ulcer unstageable to sacralcoccyx (2x1cm) Per speech therapist note 02/18, pt was seen for dysphagoa. Pt was able to swallow pureed diet with NTL. Pt with mild cough for thin liquid and difficulty with mastication skills for mechanical soft diet. Rec: pureed diet with NTL, small bites and sips only. Per RN note 02/18, pt atteempts to remove medical equipement, BUE soft restraitns in place. Per progress note 02/19, pt with left hip dislocation s/p ORIF, GI bleed with possible diverticulitis. Plan is to await cultures, continue IV antibiotics, am labs and wound care. During visit, pt was seen with RN and family. Per order on EMR: inpatient hospice ordered. Per RN note 02/19, per hospice Rebeca Monge, place patient under hospice GIP. MATERIAL ASSISTANT Whit aware. Per Rebeca, will update tomorrow when bed available. Estimated Nutritional Needs based on current body weight:54.4kg Energy: 1360-1630kcal/day (25-30kcal/kg for maintenance) Protein: 54-65g/day (1-1.2g/kg for geriatric maintenance) Fluid:1360-1630ml/day (1ml/kcal) or per doctor Nutrition Diagnosis 1. Inadequate oral intake related to poor apppetite/confusion as evidenced by documented PO intake of 25% (improving PO intake 70%) Intervention 1. Recommend continue Pureed diet and Ensure Enlive 1 can (provides 350kcal adn 20g protein) with thickner. Monitor/Evaluate Previous goal: PO intake at least 75% of estimated needs (not met) Goal: PO intake at least 75% of estimated needs Monitor: PO intake/tolerance, Labs, GI function and weights F/U in 2-3 days as moderate risk: /2-3
--- NOTE | 2019-02-19 12:56 | NUR ---
1. Recommend continue Pureed diet and Ensure Enlive 1 can (provides 350kcal adn 20g protein) with thickner.
--- NOTE | 2019-02-19 14:47 | NUR ---
SEEN REMOVING HER CLOTHES. CONFUSED. TRIED TO REORIENT. IV ACCESS ALSO SEEN OUT. TO RESTART HEP LOCK.
[2019-02-19 16:11] VITALS: BP 95/48
--- NOTE | 2019-02-19 19:26 | NUR ---
HANDOFF REPORT GIVEN TO ANDREINA HOLLIDAY.
--- NOTE | 2019-02-19 19:35 | NUR ---
RECEIVED PT FROM DAY SHIFT RN. PT AWAKE, ALERT AND ORIENTED TO SELF. PT CONFUSED. BREATHING EVEN AND UNLABORED ON RA, WITH NO SOB NOTED. MED-SURG PT, DENIES CHEST PAIN, NO SIGNS OF DISTRESS NOTED. ABD SOFT AND ROUND, ACTIVE BOWEL SOUNDS. F/C IN PLACE DRAINING YELLOW URINE. IV RFA PATENT, INFUSING WELL WITH NO SIGNS OF INFILTRATION NOTED. LEFT SIDE OF HIP COVERED WITH DRESSING, CDI. PT ALSO HAS ABUTUCTOR BRACE TO LLE IN PLACE AND ABDUCTOR PILLOW IN PLACE. PT HAS BILATERAL SOFT WIRST RESTRAINTS ON, SKIN AND CIRCULATION WNL. BUE EDEMA NOTED. NO SIGNS OF ACUTE DISTRESS NOTED. CALL BUTTON WITHIN REACH. SAFETY PRECAUTIONS IN PLACE. WILL CONTINUE TO MONITOR.
[2019-02-19 20:57] VITALS: BP 157/72
--- NOTE | 2019-02-20 | NUR ---
PT AWAKE, BREATHING EVEN AND UNLABORED WITH NO SOB NOTED. BUE SOFT RESTRAINTS IN PLACE, SKIN AND CIRCULAITON WNL. NO SIGNS OF ACUTE DISTRESS NOTED. CALL BUTTON WITHIN REACH. SAFETY PRECAUTIONS IN PLACE. WILL CONTINUE TO MONITOR.
--- NOTE | 2019-02-20 01:15 | NUR ---
PT COMPLAINING OF PAIN, MEDICATED PER EMAR. WILL CONTINUE TO MONITOR.
--- NOTE | 2019-02-20 01:30 | NUR ---
ATTEMPTED TO TAKE WOUND PHOTOS, PT BECAME AGITATED AND COMBATIVE. UNABLE TO TAKE PICTURES AT THIS TIME.
--- NOTE | 2019-02-20 04:00 | NUR ---
PT BREATHING EVEN AND UNLABORED WITH NO SOB NOTED. BUE SOFT RESTRAINTS IN PLACE, SKIN AND CIRCULATION WNL. SAFETY PRECAUTIONS IN PLACE. WILL CONTINUE TO MONITOR.
[2019-02-20 05:37] VITALS: BP 110/59
--- NOTE | 2019-02-20 06:19 | NUR ---
PT SLEPT ON AND OFF THROUGHOUT THE NIGHT. BREATHING EVEN AND UNLABORED ON RA WITH NO SOB NOTED. PT MEDICATED PER EMAR. PT ON BUE SOFT RESTRAINTS, SKIN AND CIRCULATION WNL. PT REPOSITIONED NEEDED. F/C IN PLACE, DRAINING YELLOW URINE. NO SIGNS OF DISTRESS NOTED. WILL CONTINUE TO MONITOR AND ENDORSE CARE TO DAY SHIFT RN.
--- NOTE | 2019-02-20 07:35 | NUR ---
PT RESTING, BREATHING EVEN AND UNLABORED. NO SIGNS OF DISTRESS NOTED. ENDORSED CARE TO DAY SHIFT RN, ALL QUESTIONS ADDRESSED.
--- NOTE | 2019-02-20 08:00 | NUR ---
SHIFT ASSESSMENT DONE. PATIENT DROWSY, AROUSABLE. CONFUSION; UNABLE TO MADE NEEDS KNOWN. NO RESP DISTRESS ON RA. O2 SAT 95%. P =90. ON PUREED DIET BY FEEDING. POOR APPETITE. LAST BM 02/16. NO RECTAL BLEEDING SEEN. GOODRICH PATIENT W/ BRENDA URINE OUTPUT. EDEMA 1+ TO 2+ TO BUE. IVHL'D TO RFA W/ 22G. PATENT WITH NS FLUSHING. DRSG TO L HIP INTACT. BRACE TO L HIP. ABDUCTOR PILLOW BETWWEN LEGS. HEEL PROTECTOR TIARA. ON AIR MATTRESS. COCCYX AREA ULCER W/ OPTIFOAM DRSG. TIARA WRIST RESTRAINTS IN PLACE. HANDS PINK IN COLOR AND EDUCATIONAL PROGRAM DIRECTOR TOUCH. CALL LIGHT IN REACH. SAFETY PRECAUTION IN PLACE. PATIENT IS DNR W/ HOCPICE CARE.
[2019-02-20 08:43] VITALS: BP 110/59
--- NOTE | 2019-02-20 09:06 | NUR ---
PATIENT MOANING FOR PAIN. DILAUDID 2MG PO GIVEN PER ORDER. CONTINUE MONITOR.
[2019-02-20 09:18] VITALS: BP 139/70
--- NOTE | 2019-02-20 11:34 | NUR ---
PATIENT MOANING WHEN REPOSITION. MORPHINE 2MG IVP GIVEN.
--- NOTE | 2019-02-20 11:47 | NUR ---
LAST BM ON 02/16. DR. Hawa BAKER AWARE OF. LACTULOSE 30CC PO GIVEN PER ORDER.
[2019-02-20] MEDS ORDERED: KEFLEX500 M1 PO (12:27)
[2019-02-20 12:57] VITALS: BP 139/70
--- NOTE | 2019-02-20 15:42 | NUR ---
PHYSICAL THERAPY NOTE NSG REPORTED PATIENT IS IN HOSPICE CARE. DISCHARGED FROM PHYSICAL THERAPY SERVICES, END TO NSG FOR ADLS
[2019-02-20 16:43] VITALS: BP 129/50
--- NOTE | 2019-02-20 16:43 | NUR ---
MOANING. MORPHINE 2MG IVP GIVEN.
--- NOTE | 2019-02-20 17:00 | NUR ---
DRSG TO LT HIP INCISION SITE LOOSE. CHANGED DRSG TO LT HIP W/ ISLAND DRSG. INCISION W/ JENARO. NO DRAINAGE NOW.
--- NOTE | 2019-02-20 19:00 | NUR ---
CONDITION NO SIGNIFICANT CHNAGE. FINISHED PURRED DIET DINNER 30% BY FEEDING. F/C 400 CC UOP. NO BM THIS SHIFT. BRACE D/C'D BY PT FOR COMFORT CARE. ENDORSED CARE TO NOC NURSE.
--- NOTE | 2019-02-20 19:10 | NUR ---
REPORT RECEIVED FROM DAY SHIFT RN. PATIENT WAS SEEN AND IS RESTING IN BED COMFORTABLY. ON AND OFF SCREAMING AND MOANING NOTED WITH ON AND OFF PERIODS OF SLEEP/QUIETNESS. HOSPICE NURSE, PAGE, AT BEDSIDE EVALUATING PATIENT. BREATHING EVEN ON ROOM AIR. NO SOB OR RESP DISTRESS NOTED. NO INDICATIONS OF CHEST PAIN. PATIENT DENIES PAIN. IV TO THE RFA. PATENT AND INTACT. NO REDNESS OR SWELLING NOTED, 22G. GOODRICH CATH IN PLACE DRAINING BRENDA URINE BY GRAVITY. LEFT HIP DRESSING IN PLACE, CDI. OPTIFOAM TO COCCYX, CDI. ABDUCTOR PILLOW IN PLACE. BILATERAL SOFT WRIST RESTRAINTS IN PLACE. PATIENT IS TRYING TO PULL ON LEFT HIP DRESSING AND TUBES. CIRCULATION AND SKIN INTEGRITY, WNL. COMFORT AND SAFETY MEASURES IN PLACE. BED IS LOCKED AND IN THE LOWEST POSITION. SIDE RAILS UP X2. CALL LIGHT IS WITHIN REACH. WILL CONTINUE TO MONITOR PATIENT.
--- NOTE | 2019-02-20 19:30 | NUR ---
HOSPICE NURSE, PAGE, STILL AT BEDSIDE EVALUATING PATIENT. ANSWERED ALL QUESTIONS SHE HAD REGARDING THE PATIENT. SHE ALSO SPOKE WITH CHARGE NURSE, JONNIE, AND RESIDENT, DR CAMILO.
[2019-02-20 21:08] VITALS: BP 155/63
--- NOTE | 2019-02-20 22:01 | NUR ---
ALL MEDS TOLERATED WELL. CRUSHED IN APPLE SAUCE. PATIENT WAS ABLE TO SWALLOW MEDS. ASPIRATION PRECAUTIONS IN PLACE. PATIENT IS SCREAM ON AND OFF. IS VERY RESTLESS AND IS TRYING TO REMOVE RESTRAINTS. GAVE PRN HALDOL FOR AGITATION (SEE EMAR). NEW ORDER PER DR CAMILO. PATIENT WAS PLACED ON TELE PRIOR. TELE #1. WILL CONTINUE TO MONITOR.
--- NOTE | 2019-02-21 00:10 | NUR ---
PATIENT IS RESTING IN BED WITH EYES CLOSED. PATIENT WILL HAVE PERIODS WHERE SHE WILL MUMBLE, NO SCREAMING NOTED. RESTRAINTS STILL IN PLACE. CIRUCLATION AND SKIN INTEGRITY WNL. ABX INFUSING WELL TO RFA. NO DISTRESS NOTED. BREATHING EVEN ON ROOM AIR. NO SOB OR RESP DISTRESS NOTED. CALL LIGHT IS WITHIN REACH. WILL CONTINUE TO MONITOR.
--- NOTE | 2019-02-21 00:47 | NUR ---
TELE #[address] , HR 100.
--- NOTE | 2019-02-21 01:36 | NUR ---
ON AND OFF MOANING AND FACIAL GRIMACING NOTED. PRN MORPHINE WAS ADMINISTERED PRESCRIBED. NO DISTRESS NOTED. BREATHING EVEN ON ROOM AIR. CALL LIGTH IS WITHIN REACH. WILL CONTINUE TO MONITOR AND REASSESS PAIN LEVEL.
--- NOTE | 2019-02-21 04:30 | NUR ---
MADE DR CAMILO AWARE OF THE EFFECTIVENESS OF HALDOL.
--- NOTE | 2019-02-21 05:32 | NUR ---
PRN HALDOL WAS ADMINISTERED FOR AGITATION. PATIENT WAS SCREAMING ON AND OFF. TRYING TO REMOVE RESTRAINTS. CIRCULATION AND SKIN INTEGRITY WNL. TELE #[address] WITH A RATE OF 102. BREATHING EVEN ON ROOM AIR. CALL LIGTH IS WITHIN REACH. WILL CONTINUE TO MONITOR.
--- NOTE | 2019-02-21 06:01 | NUR ---
PATIENT SLEPT IN SHORT INTERVALS THROUGHOUT THE NIGHT. NO ACUTE CHANGES NOTED. NO DISTRESS NOTED. BREATHING EVEN ON ROOM AIR. NO SOB NOTED. IV TO THE RFA. PATENT AND INTACT. NO REDNESS OR SWELLING NOTED. GOODRICH CATH IN PLACE DRAINING BRENDA URINE BY GRAVITY. ABDUCTOR PILLOW IN PLACE. LEFT HIP DRESS CDI. NO INDICATIONS ON CHEST PAIN. ON AND OFF MOANING/SCREAMING/ AGITATION THROUGHOUT THE NIGHT. PRN MORPHINE GIVE X1 WITH NO RELIEF. ON ROUTINE DILAUDID. BILATERAL SOFT WRIST RESTRAINTS IN PLACE. PATIENT TRIED TO REMOVE RESTRAINTS THROUGHOUT THE NIGHT. CIRCULATION AND SKIN INTEGRITY WNL. REMOVED RESTRAINTS TO ALLOW FOR ROM. FLUIDS GIVEN TO PATIENT THROUGHOUT THE NIGHT. ON TELE NOW (TELE#1) FOR PRN HALDOL ADMINISTRATION. MEDICATED WITH PRN HALDOL X2 FOR AGITATION. SAFETY MEASURES IN PLACE. CALL LIGHT IS WITHIN REACH. WILL ENDORSE CARE TO DAY SHIFT RN.
[2019-02-21 06:14] VITALS: BP 146/61
--- NOTE | 2019-02-21 06:40 | NUR ---
PATIENT IS AWAKE AND AGITATED AGAIN. TRYING TO PULL OFF RESTRAINTS. PRN HALDOL WAS ONLY EFFECTIVE FOR 1 HR. WILL ENDORSE TO DAY SHIFT RN.
--- NOTE | 2019-02-21 08:00 | NUR ---
SHIFT ASSESSMENT DONE. PATIENT DEMENTIA. TELE#1; ST; HR = 101. NO RESP DISTRESS ON RA. POOR APPETITE. FINISHED 40% OF PUREED DIET BREAKFAST BY FEEDING. GOODRICH PATENT W/ BRENDA UOP. IV TO RFA. BUE SWELLING. TIARA WRIST RESTRAINT. ON AIR MATTRESS. ABDUCTOR BETWEEN LEGS. INCISION TO L HIP COVERED WITH DRSG D/C/I, CHANGED YESTERDAY. PROTECTOR BOOTS TO TIARA HEELS. ULCER TO COCCYX AREA COVERED W/ OPTIFOAM DRSG D/C/I. PATIENT MOANING AND RESTLESSNESS AT TIMES. SAFETY PRECAUTION IN PLACE. MORPHINE AND HOLDOL GIVEN AT 0532 BY [facility] NURSE. CONTINUE MONITOR.
--- NOTE | 2019-02-21 09:18 | NUR ---
MOANING AND RESTLESS AT TIME. MORPHINE 2MG IVP GIVEN. CONTINUE MONITOR.
[2019-02-21 09:55] VITALS: BP 154/70
--- NOTE | 2019-02-21 11:05 | NUR ---
MORPHINE DRIP AR 2MG/HR PER ORDER.
--- NOTE | 2019-02-21 11:30 | NUR ---
PATIENT RESTLESS, ATTEMPTED TO PULL OUT GOODRICH AND DRSG. ATIVAN 0.5MG IVP GIVEN PER ORDER.
--- NOTE | 2019-02-21 12:15 | NUR ---
MEMBER OF PARLIAMENT BOB CALLED TO COMFIRM INSTRUCTIONS SHE HAD VERBALIZED EARLIER REGARDING MORPHINE DRIP. COMFIRM THAT MORPHINE DRIP WAS NOT TO BE TITRATED BUT KEPT AT 2MG/HR, CHANGE WOULD BE MADE AT HOSPICE NURSE RECOMNEDATION AND WITH APPROVAL. STATED THAT MORPHINE AND ATIVAN ORDER WAS TO MAKE PT COMFORTABLE AND LESS RESTLESS TO D/C RESTRAINTS SO THAT PATIENT MAY BE TRANSFER OUT TO SNF IF POSSIBLE. ENTERED T.O FOR MEDICATION ADMINISTRATION CLARIFICATION.
[2019-02-21 13:20] VITALS: BP 155/71
--- NOTE | 2019-02-21 14:00 | NUR ---
NEW IV INSERTION TO LFA W/ 22G NEEDLE. IV TO RFA D/C'D FOR INFILTRATION.
--- NOTE | 2019-02-21 14:52 | NUR ---
PATIENT AGITATED. ATIVAN 0.5MG IVP GIVEN. CONTINUE MONITOR.
[2019-02-21 18:24] VITALS: BP 136/55
--- NOTE | 2019-02-21 18:57 | NUR ---
LETHARGIC. OPENED EYES IN A SHORT TIME TO RESPONSE VERBRAL STIMULI. NON-VERBRAL. MORPHINE DRIP 2MG/HR, ATIVAN 0.5MG IVP Q6H PER ORDER. UOP 425CC COLLECTED. NO BM AFTER LACTULOSE PO X2 DAYS. PATIENT COMFORT, NO S/S OF PAIN. ENDORSED CARE TO NOC NURSE.
--- NOTE | 2019-02-21 19:00 | NUR ---
REPORT RECEIVED FROM DAY SHIFT RN. PATIENT WAS SEEN AND IS RESTING COMFORTABLY IN BED WITH EYES CLOSED. EASILY AROUSABLE. OPENS EYES, BUT IS NONVERBAL. NO DISTRESS NOTED. BREATHING EVEN ON ROOM AIR. NO SOB OR RESP DISTRESS NOTED. PATIENT IS ON A MORPHINE DRIP INFUSING AT 2MG/HR TO THE LFA. PATENT AND INTACT. NO REDNESS OR SWELLING NOTED. ON BILATERAL SOFT WRIST RESTRAINTS BECAUSE PATIENT IS PULLING ON DRESSING AND TUBES. CIRCULATION AND SKIN INTEGRITY WNL. LEFT HIP DRESSING IN PLACE. PATIENT PULLED OFF DRESSING. REINFORCED. WILL CHANGE LATER. GOODRICH CATH IN PLACE DRAINING BRENDA URINE BY GRAVITY. ABDUCTOR PILLOW IN PLACE. OPTIFOAM TO THE COCCYX, CDI. CALL LIGHT IS WITHIN REACH. COMFORT AND SAFETY MEASURES IN PLACE. BED IS LOCKED AND IN THE LOWEST POSITION. SIDE RAILS UP X2. WILL CONTINUE TO MONITOR.
[2019-02-21 21:38] VITALS: BP 119/47
--- NOTE | 2019-02-21 21:40 | NUR ---
REMOVED LEFT RESTRAINTS AND WILL CONTINUE TO MONITOR PATIENT TO SEE IF SHE TRIES TO PULL ON DRESSING OR TUBES. PATIENT IS CURRENTLY RESTING WITH EYES CLOSED. BREATHING EVEN. MORPHINE DRIP RUNNING AT 2MG/HR (4ML/HR). SAFETY MEASURES IN PLACE. CALL LIGHT IS WITHIN REACH. WILL CONTINUE TO MONITOR.
--- NOTE | 2019-02-21 21:40 | NUR ---
REMOVED LEFT RESTRAINTS. WILL CONTINUE TO MONITOR PATIENT AND SEE IF SHE TRIED TO PULL ON DRESSING OR TUBES. PATIENT IS CURRENTLY RESTING WITH EYES CLOSED. BREATHING EVEN. MORPHINE DRIP RUNNING AT 2MG/HR (4ML/HR). SAFETY MEASURES IN PLACE. CALL LIGHT IS WITHIN REACH. WILL CONTINUE TO MONITOR.
--- NOTE | 2019-02-21 22:54 | NUR ---
PATIENT RESTING IN BED WITH EYES CLOSED. BREATHING EVEN ON ROOM AIR. NO DISTRESS NOTED. LEFT WRIST RESTRAINT REMAINS OFF. PATIENT IS NOT PULLING AT LEFT HIP DRESSING. PATIENT IS QUIET. WILL CONTINUE TO KEEP LEFT WRIST RESTRAINT OFF AND CONTINUE TO MONITOR PATIENT. CALL LIGHT IS WITHIN REACH. SAFETY PRECAUTIONS IN PLACE.
--- NOTE | 2019-02-21 22:54 | NUR ---
PATIENT RESTING IN BED WITH EYES CLOSED. BREATHING EVEN ON ROOM AIR. NO DISTRESS NOTED. LEFT WRIST RESTRAINT REMAINS OFF. PATIENT IS NOT PULLING AT LEFT HIP DRESSING. PATIENT IS QUIET. WILL CONTINUE TO LEFT LEFT WRIST RESTRAINT OFF AND CONTINUE TO MONITOR PATIENT. CALL LIGHT IS WITHIN REACH. SAFETY PRECAUTIONS IN PLACE.
--- NOTE | 2019-02-22 00:57 | NUR ---
PATIENT RESTING IN BED WITH EYES CLOSED. CALM, NO AGITATION OR RESTLESSNESS NOTED. BREATHING EVEN ON ROOM AIR. PATIENT DID NOT REMOVE LEFT HIP DRESSING WHILE LEFT WRIST RESTRAINT WAS OFF. REMOVED RIGHT WRIST RESTRAINT, SO BOTH WRIST RESTRAINTS ARE OFF AT THIS TIME. CIRCULATION AND SKIN INTEGRITY WNL. MORPHINE DRIP INFUSING WELL @ 2MG/HR (4ML/HR). SAFETY MEASURES IN PLACE. WILL CONTINUE TO MONITOR AND SEE HOW PATIENT IS WITH RESTRAINTS OFF.
--- NOTE | 2019-02-22 02:48 | NUR ---
LEFT HIP DRESSING CHANGED. OLD DRESSING HAS MINIMAL YELLOW DRAINAGE. SURGICAL WOUNDS WITH JENARO INTACT. EDGES ARE WELL APPROXMIATED. WOUND BED HAS ECCHYMOSIS. SURGICAL WOUND CLEANSED WITH NS AND PATTED DRY. [facility] DRESS[facility], [facility]. PATIENT MOANED AND HAD FACIAL GRIMACING DURING DRESSING CHANGE. PATIENT REPOSITIONED AND MADE COMFORTABLE IN BED. MOANING AND FACIAL GRIMACING STOPPED. RESTRAINTS REMAIN OFF. PATIENT IS NOT PULLING ON DRESSING OR TUBING. NO RESTLESSNESS OR AGITATION NOTED. MORPHINE DRIP INFUSING WELL. BREATHING EVEN ON ROOM AIR. SAFETY MEASURES IN PLACE. NO BM NOTED. CALL LIGHT IS WITHIN REACH. WILL CONTINUE TO MONITOR.
[2019-02-22 06:10] VITALS: BP 101/70
--- NOTE | 2019-02-22 06:52 | NUR ---
PATIENT SLEPT THROUGHOUT THE NIGHT. NO ACUTE CHANGES NOTED. NO DISTRESS. BREATHING EVEN ON ROOM AIR. ON MORPHINE DRIP @ 2MG/HR TO THE LFA. RESTRAINTS REMOVED AT 0100 AND REMAINED OFF. PATIENT DID NOT PULL ON TUBES OR DRESSING. NO MAONING OR FACIAL GRIMACING NOTED. SAFETY MEASURES IN PLACE. CALL LIGHT IS WITHIN REACH. WILL ENDORSE CARE TO DAY SHIFT RN.
--- NOTE | 2019-02-22 07:20 | NUR ---
RECEIVED PT FROM WINDOWS SYSTEM ADMIN RN. DROWSY BUT AROUSABLE TO TOUCH. OPENS EYES. NONVERBAL. NO ACUTE RESP DISTRESS NOTED ON RA. TELE#1. NO SIGNS OR INDICATIONS OF PAIN NOTED. NO SIGNS OR INDICTIONS OF AGITATION NOTED. MORPHINE DRIP INFUSING AT 2 MG/HR TO LFA. NO REDNESS OR SWELLING NOTED. ABDUCTOR PILLOW IN PLACE TO BLE WITH HEEL PROTECTORS IN PLACE. WILL CONTINUE TO MONITOR. CALL LIGHT IN REACH. BED IN LOWEST POSITION.
[2019-02-22 08:48] VITALS: BP 86/4
--- NOTE | 2019-02-22 09:04 | NUR ---
SPOKE WITH SALVDAOR FROM [facility] ELSY FRANCO TRANSPORATION WILL PRE BILLING SPECIALIST PT AT 1 PM WITH . PT IS GOING TO [facility] IN [place]. FAMILY IS AWARE. ELSY FRANCO PLEASE MEDICATE PT WITH [facility]IVAN PRIOR TO TRANSFER.
--- NOTE | 2019-02-22 09:08 | NUR ---
DR. OMER MADE AWARE OF NEED FOR DISCHARGE ORDER. PER DR. OMER WILL LET DR. ORTIZ KNOW.
[2019-02-22 11:27] VITALS: BP 86/42
[2019-02-22 12:12] VITALS: BP 86/40
--- NOTE | 2019-02-22 12:25 | NUR ---
SPOKE WITH DAUGHTER AMI SITA. AMI HILL WITH PT TRANSFER TO [facility]. CONFIRMED WITH CHARGE NURSE
--- NOTE | 2019-02-22 12:30 | NUR ---
PT SITTING UP IN BED. PT CHANGED INTO PINK GOWN. OPTIFOAM TO COCCYX CHANGED. APPLIED THERAHONEY TO SACRUM. DRESSING TO LT HIP REMOVED. PHOTOS TAKEN. CLEANSED SITE WITH NS. APPLIED ISLAND DRESSING. EMPTIED GOODRICH CATHETER. GOODRICH CARE PROVIDED. REPOSITIONSED PT ON LT SIDE. ABDUCTOR PILLOW IN PLACE. MORPHINE DRIP INFUSING AT 2MG/HR TO LFA. NO REDNESS OR SWELLING NOTED. WILL CONTINUE TO MONITOR. CALL LIGHT IN REACH. BED IN LOWEST POSITION.
[2019-02-22 12:52] VITALS: BP 156/66
--- NOTE | 2019-02-22 13:22 | NUR ---
PRIMIER AT BEDSIDE TO INTERNATIONAL ACCOUNT REPRESENTATIVE PT. REPORT GIVEN. MEDICATED WITH [facility] PER [facility] REQUEST. IV SALINE LOCKED. NO REDNESS OR SWELLING NOTED. GOODRICH CATHETER IN PLACE, SECURED TO THIGH. TELE#1 RETURNED TO CONSERVATION BIOLOGY PROFESSOR JESUS.
== END 2019-02-22 13:33 | disposition hospice, home (50) | DRG 466 ==
LOC: ED 09:34 → MU 10:35 → DU 10:35 → MU 12:24 → DU 02-21 06:33
PROVIDERS: Emergency Medicine; Internal Medicine; Internal Medicine Gastroenterology; Neuromusculoskeletal Medicine, Sports Medicine; ADMIT General Practice
PROC: 0SWB0JZ Revision of Synthetic Substitute in Left Hip Joint, Open Approach (ICD-10-PCS; 2019-02-10)
PROC: 0QS704Z Reposition Left Upper Femur with Internal Fixation Device, Open Approach (ICD-10-PCS; principal; 2019-02-10 08:00)
DX: T84.021A Dislocation of internal left hip prosthesis, initial encounter (principal); N17.0 Acute kidney failure with tubular necrosis; K57.93 Diverticulitis of intestine, part unspecified, without perforation or abscess with bleeding; E44.0 Moderate protein-calorie malnutrition; R65.10 Systemic inflammatory response syndrome (SIRS) of non-infectious origin without acute organ dysfunction; J44.1 Chronic obstructive pulmonary disease with (acute) exacerbation; M97.02XA Periprosthetic fracture around internal prosthetic left hip joint, initial encounter; F32.9 Major depressive disorder, single episode, unspecified; F03.90 Unspecified dementia, unspecified severity, without behavioral disturbance, psychotic disturbance, mood disturbance, and anxiety; E78.5 Hyperlipidemia, unspecified; Z68.21 Body mass index [BMI] 21.0-21.9, adult; Z91.81 History of falling; Z96.642 Presence of left artificial hip joint; W01.0XXA Fall on same level from slipping, tripping and stumbling without subsequent striking against object, initial encounter; Y92.129 Unspecified place in nursing home as the place of occurrence of the external cause
CPT/HCPCS: 76001; 82962; 92526-GN; 92610; 97110-GP; 97112-GP; 97530-GP; C1713; C9113; G0378; J0690; J1630; J1644; J1885; J2060; J2175; J2270; J2405; J2704; J2916; J3010; J3480; J3490; J7030; J7040; J7050; J7120; J7620; Q0092